=== PATIENT | male | born 1945 | race Caucasian/White ===

== ENCOUNTER 2023-05-10 10:26 | Inpatient (IN) | payer MEDICARE, OTHER, SELFPAY ==
[2023-05-10] VITALS (31 sets, daily range): BP systolic 113–150; BP diastolic 61–78; PULSE 76–91; RESP 16–28; TEMP 36.5–37.2; O2SAT 88–98
--- NOTE | ~2023-05-10 | XR_ITS ---
EXAMINATION: XR chest 1V portable DATE: 05/11/2023 12:32 INDICATION: Hypoxia. Weakness. TECHNIQUE: A single frontal view of the chest was obtained. COMPARISON: Chest single view 05/10/2023, chest CT 05/10/2023 FINDINGS: There are interstitial and airspace opacities in the mid and lower lung zones. No pleural e ffusion or pneumothorax. The heart size is normal. IMPRESSION: 1. Stable airspace and interstitial opacities in the mid and lower lung zones, consistent with mild p ulmonary edema and chronic lung disease without or with superimposed pneumonia. Reviewed, dictated and finalized at location A. T SUPERINTENDENT IMPRESSION: 1. Stable airspace and interstitial opacities in the mid and lower lung zones, consistent with mild pulmonary edema and chronic lung disease without or with s uperimposed pneumonia.
--- NOTE | ~2023-05-10 | CT_ITS ---
EXAMINATION: CTA chest PE abdomen pel DATE: 05/10/2023 12:14 INDICATION: Shortness of breath. TECHNIQUE: Computed tomography angiography (CTA) of the chest was performed with 100 mL Omnipaque-350 intravenous contrast timed to evaluate the pulmonary arteries. Coronal maximum intensity projection 3D-reconstructions were created by the technologist. Computed tomography (CT) of the abdomen and pelv is was performed with intravenous contrast. Automated exposure control and iterative reconstruction t echnique were employed. The dose-length product was 980.01 mGy-cm. COMPARISON: Chest one view 05/10/2023 FINDINGS: CTA chest: There are widespread groundglass opacities in the lungs with septal thickening with a mary pheral predominance with architectural distortion. There are dependent airspace opacities in the lowe r lobes. There is mucous plugging in the lower lobes. There are trace pleural effusions. Cardiomegaly is noted. There are coronary artery calcifications. No pericardial effusion. There is no pulmonary e mbolus. There is mild mediastinal lymphadenopathy, likely reactive. CT abdomen and pelvis: The liver is normal. There is mild splenomegaly. There are old peripheral infa rcts in the spleen with focal volume loss. There are gallstones in the gallbladder, which is normal i n size. The pancreas and adrenal glands are normal. There are stones in right kidney measuring up to 13 mm. There is a delayed and decreased right-sided contrast nephrogram. There is mild right hydronep hrosis and hydroureter. There are 3 mm and 6 mm stones in proximal right ureter. There is a 2.[address] in left kidney. The bladder is distended. There are bilateral hernias containing fat. There is tra ce ascites in the right inguinal hernia. There is diverticulosis of the colon without evidence of div erticulitis. The appendix is not visualized. There are no pathologically enlarged lymph nodes. There is no free intraperitoneal fluid. Intra-abdominal edema is noted. There are changes of umbilical sana ia repair. There is mild lumbar spondylosis. IMPRESSION: 1. Stones in proximal right ureter with mild right hydronephrosis and proximal hydroureter. 2. Diffuse lung disease, likely mild pulmonary edema superimposed on chronic lung disease. Airspace o pacities in the lower lobes be atelectasis or pneumonia. 3. No pulmonary embolus. Reviewed, dictated and finalized at location A. NCE CENTER DISPLAY BUILDER IMPRESSION: 1. Stones in proximal right ureter with mild right hydronephrosis and proximal hydroureter. 2. Diffuse lung disease, likely mild pulmonary edema superimposed on chronic lisa ng disease. Airspace opacities in the lower lobes be atelectasis or pneumonia. 3. No pulmonary embolus.
--- NOTE | ~2023-05-10 | XR_ITS ---
EXAMINATION: XR stent kub - surgery DATE: 05/10/2023 15:48 INDICATION: Right ureteral stones. TECHNIQUE: 2 intraoperative fluoroscopic views of the abdomen and pelvis were obtained. I was not pre sent. Fluoroscopy exposure time was 59 seconds. COMPARISON: CT 05/10/2023 FINDINGS: There is a right internal ureteral stent in expected position. IMPRESSION: 1. Right internal ureteral stent in expected position. Reviewed, dictated and finalized at location A. ST FIREFIGHTER
--- NOTE | ~2023-05-10 | XR_ITS ---
Portable chest x-ray Comparison: None Clinical History: Shortness of breath Findings: There is extensive hazy/groundglass pulmonary disease. No pleural effusion. Cardiomediast inal silhouette is stable. Bones and soft tissues are unremarkable. Impression: Extensive ground glass pulmonary disease. Correlate for mild pulmonary edema versus atypical infectio n. Reviewed, dictated and finalized at [facility]. [place] WATCH SERGEANT Impression: Extensive ground glass pulmonary disease. Correlate for mild pulmonary edema ve rsus atypical infection.
--- NOTE | 2023-05-10 10:54 | ECG_ITS ---
Measurements Intervals [place] Rate: 84 P: 46 GA: 187 QRS: -10 QRSD: 104 T: 8 QT: 376 QTc: 446 Interpretive Statements SINUS RHYTHM EARLY PRECORDIAL R/S TRANSITION CONSIDER INFERIOR INFARCT, AGE INDETERMINATE ABNORMAL ECG NO PREVIOUS ECG AVAILABLE FOR COMPARISON Electronically Signed On 05-10-2023 11:34:04 AIRCRAFT LOADMASTER SUPERINTENDENT by Toni Chamorro D.O.
[2023-05-10] MEDS: ONDANSETRON INJ 4 MG/2 ML VIAL IV PUSH (11:14)
[2023-05-10 11:15] LABS: Alveolar/Arterial O2 Gradient 90.4 mmHg; Fractional Inspired Oxygen 28 %; HCO3 ABG 21.6 mEq/l (22.0-26.0); Methemoglobin ABG 0.4 %THb (0-1.5); Oxygen Content ABG 23.6 %vol (16.0-22.0); Oxygen Saturation ABG 95.4 % (95.0-100.0); Oxyhemoglobin 93.1 % THb (90.0-100.0); PCO2 ABG 31.5 mmHg (35.0-45.0); PO2 ABG 72.1 mmHg (80.0-100.0); PO2 FiO2 Ratio Arterial Blood 2.58 %; Reduced Hemoglobin 5.5 %THb (0-5.0); Total Hemoglobin 18.1 g/dL (12.0-18.0); pH ABG 7.455 (7.350-7.450)
[2023-05-10 11:16] LABS: Device NASAL CANNULA; Modified Allen's Test Pass; Site Drawn RIGHT RADIAL
[2023-05-10 11:32] LABS: INR 1.2; Prothrombin Time 16.2 Seconds (11.1-14.7)
[2023-05-10 11:33] LABS: Lactic Acid Reflex 1.2 mmol/L (0.7-2.0)
[2023-05-10 11:56] LABS: Influenza A QL RT-PCR Negative (Negative); Influenza B QL RT-PCR Negative (Negative); RSV RNA, RT-PCR Negative (Negative); SARS-CoV-2 RNA PCR Negative (Negative)
--- NOTE | 2023-05-10 12:02 | ED.GENADULT ---
HPI - General Adult General Chief complaint: Nausea/Vomiting/Diarrhea Stated complaint: fatigue/sob/nausea Time Seen by Provider: 05/10/23 10:27 Source: patient, EMS, RN notes reviewed and old records reviewed Mode of arrival: EMS Limitations: no limitations History of Present Illness HPI narrative: This is a 78 year old male with history of hypertension and hyperlipidemia who presents for evaluation of shortness of breath, right lower abdominal pain with nausea. He states he was diagnosed with CML 5 months ago and he is following with Dr. Garcia for oncology. He was seen yesterday and he is due to start hydroxyurea but he has not started yet. He states yesterday he developed nausea, dry heaves, right lower abdominal pain and shortness of breath. He reports his pain has been constant. He reports having cough for months. EMS placed patient on 2 L NC. Patient is 88% on room air in ER. He had CT chest, abdomen and pelvis ordered yesterday but he has not had performed yet. Related Data Home Medications Medication Instructions Recorded Confirmed amlodipine 10 mg tablet 10 mg PO DAILY 05/10/23 05/10/23 atorvastatin 10 mg tablet 10 mg PO DAILY 05/10/23 05/10/23 hydroxyurea 500 mg capsule 500 mg PO DAILY 05/10/23 05/10/23 levothyroxine 112 mcg tablet 112 mcg PO DAILY 05/10/23 05/10/23 Allergies Allergy/AdvReac Type Severity Reaction Status Date / Time shellfish derived Allergy Unknown Nausea and Verified 05/10/23 14:18 Vomiting Review of Systems Constitutional: Constitutional: Reports weakness Cardiovascular: Cardiovascular: Denies syncope, Denies rapid heart rate, Denies irregular heart rhythm, Denies leg edema and Denies dyspnea Respiratory: Respiratory: Denies chest congestion, Reports cough, Denies hemoptysis, Denies excessive phlegm production and Reports dyspnea Gastrointestinal: Gastrointestinal: Reports abdominal pain, Denies hematochezia, Denies diarrhea, Reports nausea and Reports vomiting Genitourinary: Genitourinary: Denies hematuria, Denies dysuria, Denies penile discharge and Denies testicular pain Musculoskeletal: Musculoskeletal: Denies joint swelling, Denies loss of height and Denies muscle weakness Neurologic: Denies syncope, Denies focal weakness and Denies weakness PMFSH Past Medical History Medical History CML (chronic myelocytic leukemia) Essential hypertension Hyperlipidemia Hypothyroid Surgical History Surgical History H/O umbilical hernia repair Family History Family History (Updated 05/10/23 @ 17:32 by Juli Martines RN) Father Hiatal hernia Grandparent Malignant neoplasm of prostate Social History Social History Social History: Lives at home alone. He has 1 child a daughter, Helen Montesinos. He list his daughter Madeline and Skye Evans as his emergency contact. He also states that he has a living will. 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 Gender identity (if verbalized by the patient): Male Spiritual care concerns: No Exam Const: General: no acute distress, alert and ill appearing Orientation/consciousness: patient oriented x3 HENMT: Head: normal to inspection Eyes: EOM: EOMs int
[2023-05-10 12:03] LABS: Hematocrit 56.7 % (42.0-52.0); Hemoglobin 17.7 g/dL (14.0-18.0); Immature Platelet Fraction Pct 24.4 % (0.9-11.2); Mean Corpuscular HGB Conc 31.2 g/dl (32-36); Mean Corpuscular Hemoglobin 27.7 pg (26-34); Mean Corpuscular Volume 88.7 fl (80-100); Mean Platelet Volume 13.7 fl (7.4-10.4); Platelet Count Result 150 k/mm3 (150-375); Red Blood Count 6.39 M/mm3 (4.6-6.20); Red Cell Distribution Width 17.9 % (11.5-14.5); White Blood Count 36.8 K/mm3 (4.5-10.0)
[2023-05-10 12:06] LABS: Estimated CRCL calculation 31 ml/min; Estimated Glomerular Filt Rate 39
[2023-05-10 12:15] LABS: Alanine Aminotransferase 26 U/L (6-50); Albumin Level 4.1 g/dL (3.5-5.1); Alkaline Phosphatase 307 U/L (38-126); Anion Gap 13 mmol/L (8-16); Aspartate Amino Transferase 40 U/L (17-59); Bilirubin,Total 1.7 mg/dL (0.2-1.3); Blood Urea Nitrogen 24 mg/dL (9-20); Calcium 9.2 mg/dL (8.4-10.2); Carbon Dioxide 22 mmol/L (22-30); Chloride 100 mmol/L (98-107); Estimated CRCL calculation 30 ml/min; Estimated Glomerular Filt Rate 37; Glucose 130 mg/dL (65-110); Lipase 23 U/L (23-300); Potassium 4.3 mmol/L (3.4-5.0); Sodium 135 mmol/L (137-145)
[2023-05-10 12:35] LABS: Band Neutrophils Percent 14 % (0-6); Eosinophils Absolute Manual 0.36 K/mm3 (0.02-0.5); Eosinophils Percent Manual 1 % (0-4); Lymphocytes Percent Manual 3 % (18-44); Monocytes Absolute Manual 8.09 K/mm3 (0.1-0.90); Monocytes Percent Manual 22 % (3-9); Neutrophils Absolute Manual 27.23 K/mm3 (1.3-6.7); Neutrophils Percent Manual 60 % (46-73); Platelet Estimate Adequate (Adequate); Total Cells Counted 100
[2023-05-10 12:36] LABS: Poikilocytosis 1+ (NORMAL); Schistocytes None Seen (NORMAL)
[2023-05-10 12:42] LABS: NT Pro B Type Natriuretic Pept 1350 pg/mL (19.9-100); Troponin I < 0.012 ng/mL (0.000-0.034)
[2023-05-10 13:12] LABS: Appearance Urine Clear (Clear); Bacteria Urine None Seen /hpf; Bilirubin Urine Negative (Negative); Blood Urine 2+ (Negative); Color Urine Yellow (Yellow); Glucose Urine UA Negative (Negative); Ketones Urine Negative (Negative); Leukocyte Esterase Ur Negative LEU/UL (Negative); Nitrate Urine Negative (Negative); Non Pathogenic Casts 0-2; Protein Urine 2+ mg/dL (Negative); RBC Urine 21-50 /hpf (0-2); Specific Grav Ur 1.016 (1.001-1.035); Squamous Epithelial Cell Urine None seen /hpf (Few); WBC Urine 0-5 /hpf
[2023-05-10 13:22] LABS: Add Urine Microscopic? YES
[2023-05-10] MEDS: FUROSEMIDE INJ 40 MG/4 ML VIAL IV PUSH ×2 (13:24→18:01)
--- NOTE | 2023-05-10 13:40 | WPDURCON ---
Assessment and Plan Assessment and plan (1) Right ureteral stone: Code(s): N20.1 - Calculus of ureter Status: Acute (2) Right renal stone: Code(s): N20.0 - Calculus of kidney Status: Acute Assessment and Plan: Obstructing right proximal ureteral stone with intractable nausea vomiting possible UTI Plan cysto with right stent placement today. Definitive stone management with ESWL [id number]. Urology Consult Note HPI Date Seen: 05/10/23 Primary Care Provider: GABBY HUERTAS, NETWORKING ENGINEER Consult Narrative Narrative: Oscar Vila is a 78 year old male without prior significant urological history without history of urolithiasis. He presents the emergency department with intractable nausea and vomiting. Imaging demonstrates an obstructing right proximal denies a history urolithiasis in the past. He denies fevers chills or gross hematuria. He does have a history of CML explains, in part, his leukocytosis. Review of Systems Cardiovascular: Cardiovascular: Denies chest pain, Denies lightheadedness, Denies palpitations and Denies dyspnea Respiratory: Respiratory: Denies dyspnea Gastrointestinal: Gastrointestinal: Denies diarrhea, Denies nausea and Denies vomiting Genitourinary: Genitourinary: Denies hematuria and Denies dysuria Endocrine: Endocrine: Denies palpitations PMFSH Past Medical History Medical History (Updated 05/10/23 @ 13:42 by Morris Diggs MD) CML (chronic myelocytic leukemia) Essential hypertension Hyperlipidemia Family History Family History (Updated 03/29/17 @ 15:34 by DOCTOR UNKNOWN) Other Malignant neoplasm of prostate Social History Social History Smoking status: Never smoker Alcohol intake: current Meds Home Medications and Allergies Allergies Allergy/AdvReac Type Severity Reaction Status Date / Time shellfish derived Allergy Unknown Nausea and Verified 05/10/23 11:09 Vomiting Vital Signs Vital Signs - 24 hr 05/10/23 10:26 05/10/23 11:16 05/10/23 11:19 Temperature 97.7 F Pulse Rate 84 Respiratory Rate 17 Blood Pressure 139/75 Pulse Oximetry 94 88 L 92 Oxygen Delivery Nasal Cannula Room Air Nasal Cannula Oxygen Flow Rate 2 2 05/10/23 10:33 05/10/23 10:45 05/10/23 11:00 Temperature Pulse Rate 86 87 86 Respiratory Rate 17 23 H 23 H Blood Pressure Pulse Oximetry 95 91 91 Oxygen Delivery Oxygen Flow Rate 05/10/23 11:01 05/10/23 11:15 05/10/23 11:31 Temperature Pulse Rate 84 86 84 Respiratory Rate 28 H 25 H 26 H Blood Pressure 130/69 Pulse Oximetry 93 89 L 93 Oxygen Delivery Oxygen Flow Rate 05/10/23 11:45 05/10/23 12:19 05/10/23 12:20 Temperature Pulse Rate 85 90 91 Respiratory Rate 25 H 23 H 24 H Blood Pressure 150/78 H Pulse Oximetry 94 95 Oxygen Delivery Oxygen Flow Rate 05/10/23 12:30 05/10/23 12:31 05/10/23 12:32 Temperature Pulse Rate 86 88 90 Respiratory Rate 26 H 24 H 27 H Blood Pressure 145/76 H Pulse Oximetry 92 93 92 Oxygen Delivery Oxygen Flow Rate 05/10/23 12:47 05/10/23 13:03 Temperature Pulse Rate 86 84 Respiratory Rate 23 H 20 Blood Pressure 132/66 Pulse Oximetry 92 96 Oxygen Delivery Oxygen Flow Rate Exam Const: General: no acute distress Resp: Effort & Inspection: normal respiratory effort GI: Inspection: non-distended GI Palp: No abdominal tenderness and No Guarding due to palpation present (GI) Auscultation: normal bowel sounds Results Labs 05/10/23 11:49 05/10/23 12:04 Labs: Short CBC 05/10/23 Range/Units 11:49 WBC 36.8 H (4.5-10.0) K/mm3 Hgb 17.7 (14.0-18.0) g/dL Hct 56.7 H (42.0-52.0) % Plt Count 150 (150-375) k/mm3 BMP 05/10/23 05/10/23 11:49 12:04 Sodium 135 L Potassium 4.3 Chloride 100 Carbon Dioxide 22 BUN 24 H Creatinine 1.80 H 1.70 H Glucose 130 H Calcium 9.2 Cardiac Enzymes 05/10
--- NOTE | 2023-05-10 13:44 | WPDHPUPDATE1 ---
History and Physical Update Update Date/Time: 05/10/23 13:44 History and Physical has been reviewed, including an updated exam of the patient. There are NO changes in the patient's condition. Risks, benefits, and alternatives have been discussed and questions answered. Patient agrees to proceed with procedure.
--- NOTE | 2023-05-10 14:11 | PM.IMHP ---
H&P: HPI History of Present Illness Date/Time: 05/10/23 14:11 Chief Complaint: Right-sided abdominal pain, shortness a breath Narrative: This is a 78-year-old male with a past medical history of hypothyroidism, high cholesterol, hypertension, and recent diagnosis of CML status post bone marrow biopsy. He presented to the ER today with symptoms of right-sided abdominal/flank pain, nausea, and shortness of breath. He says that he has been having shortness of breath off and on for the last couple of weeks. He has a productive cough with white sputum. He denies fever or chills, sore throat, runny nose or recent sick contact. Last night he developed right-sided flank and abdominal pain associated with dry heaving. The pain is ultimately what brought him to the hospital. On arrival to the ER he was sating 88% on air. He was placed on 2 L and his oxygen improved to greater than 92%. Respirations in the 20s, heart rate in the 80s and he is afebrile. Blood pressures have been stable 130s to 140s over 70s. Patient states he follows with his primary care provider Felicitas Jackson NP and follows with an oncologist at [facility] for his leukemia. He was start taking hydroxyurea for his CML. The prescription was filled yesterday but he has yet to take his 1st dose. In the ED labs are significant for a white count of 36.8, hematocrit 56.7, PT 16.2, APTT 50, sodium 135, creatinine 1.80, BUN 24, and BNP of 1350. CTA chest abdomen and pelvis shows no PE, diffuse lung disease with mild pulmonary edema and airspace opacities in lower lobes thought to be atelectasis versus pneumonia. He also had 3 mm and 6 mm stones in the proximal right ureter with mild right hydronephrosis and proximal hydroureter. UA has presence of protein, blood but no signs of infection. He is being admitted under observation for further workup of new oxygen requirement and urology consult for immune stent placement and possible stone extraction. He is going to the OR this afternoon with Dr. Diggs. Review of Systems Review of Systems: All systems reviewed & are unremarkable except as noted in HPI and below PMFSH Past Medical History Medical History CML (chronic myelocytic leukemia) Essential hypertension Hyperlipidemia Hypothyroid Surgical History Surgical History H/O umbilical hernia repair Family History Family History Other Malignant neoplasm of prostate Social History Social History (Updated 05/10/23 @ 14:24 by Aleida Engel APRN) Social History: Lives at home alone. He has 1 child a daughter, Helen Montesinos. He list his daughter Madeline and Skye Evans as his emergency contact. He also states that he has a living will. Smoking status: Never smoker Alcohol intake: current Alcohol use details: States he drinks a few beers a day Substance use: never Lack of Transportation: No Lack of Food: Never True Current Housing: I Have Housing Concerned About Future Housing: No Difficulty Paying Gas/Electric Bills: No Difficulty Paying for Meds: No Currently Unemployed: No Difficulty w/ Childcare or Family Care: No Living arrangements: alone Occupation/Education: retired Additional occupation/education comments: He is retired from the [employer] and works part-time with [employer]. Gender identity (if verbalized by the patient): Male Meds Home Medications and Allergies Home Medications Medication Instructions Recorded Confirmed Type amlodipine 10 mg tablet 10 mg PO DAILY 05/10/23 05/10/23 History atorvastatin 10 mg tablet 10 mg PO DAILY 05/10/23 05/10/23 History hydroxyurea 500 mg capsule 500 mg PO DAILY 05/10/23 05/10/23 History levothyroxine 112 mcg tablet 112 mcg PO DAILY 05/10/23 05/10/23 History Allergies Allergy/AdvReac Type Evie
--- NOTE | 2023-05-10 14:43 | WPDANESEPPF ---
Anes - Initial Pre Proc Eval Procedure: Operation Date: 05/10/23 16:30 Proposed Procedures p Cystoscopy, Right Stent Placement - Morris Diggs MD Date/Time: 05/10/23 14:43 Surgeon: Morris Diggs MD Pre Op Diagnosis: fatigue/sob/nausea Patient Data Age: 78 Gender: M Height: 1.7 m Weight: 78.6 kg Last Vital Signs Temp 36.5 C 05/10/23 14:11 Pulse 85 05/10/23 14:11 Resp 18 05/10/23 14:11 BP 142/68 H 05/10/23 14:11 Pulse Ox 97 05/10/23 14:11 O2 Del Method Room Air 05/10/23 14:11 O2 Flow Rate 2 05/10/23 11:19 Allergies Allergy/AdvReac Type Severity Reaction Status Date / Time shellfish derived Allergy Unknown Nausea and Verified 05/10/23 14:18 Vomiting Home Medications Medication Instructions Recorded Confirmed Type amlodipine 10 mg tablet 10 mg PO DAILY 05/10/23 05/10/23 History atorvastatin 10 mg tablet 10 mg PO DAILY 05/10/23 05/10/23 History hydroxyurea 500 mg capsule 500 mg PO DAILY 05/10/23 05/10/23 History levothyroxine 112 mcg tablet 112 mcg PO DAILY 05/10/23 05/10/23 History Laboratory Tests 05/10/23 05/10/23 05/10/23 11:03 11:04 11:06 WBC RBC Hgb Hct MCV MCH MCHC RDW Plt Count MPV Immature Gran % (Auto) Neut % (Auto) Lymph % (Auto) [place] % (Auto) Eos % (Auto) Baso % (Auto) Lymph # (Auto) [place] # (Auto) Eos # (Auto) Baso # (Auto) Abs Immat Gran (auto) Absolute Neuts (auto) Absolute Nucleated RBC Total Counted Neutrophils % (Manual) Band Neutrophils % Lymphocytes % (Manual) Monocytes % (Manual) Eosinophils % (Manual) Nucleated RBC % Abs Neuts (Manual) Abs Lymphs (Manual) Abs Monocytes (Manual) Absolute Eos (Manual) Platelet Estimate % Immature Plt Fraction Poikilocytosis Schistocytes PT 16.2 H Seconds (11.1-14.7) INR 1.2 APTT 50.0 H SECONDS (22.3-36.8) Puncture Site Right radial ABG pH 7.455 H (7.350-7.450) ABG pCO2 31.5 L mmHg (35.0-45.0) ABG pO2 72.1 L mmHg (80.0-100.0) ABG PO2/FiO2 Ratio 2.58 % ABG HCO3 21.6 L mEq/l (22.0-26.0) ABG O2 Saturation 95.4 % (95.0-100.0) ABG O2 Content 23.6 H %vol (16.0-22.0) ABG Base Excess -1.0 mEq/l (+/-2.0) A-a Gradient 90.4 mmHg Oxyhemoglobin 93.1 % THb (90.0-100.0) Carboxyhemoglobin 1.0 % THb (0-2.0) Methemoglobin 0.4 %THb (0-1.5) Reduced Hemoglobin 5.5 H %THb (0-5.0) Total Hemoglobin 18.1 H g/dL (12.0-18.0) O2 Delivery Device Nasal cannula O2 Liters/Min 2.0 LPM FiO2 28 % Sodium Potassium Chloride Carbon Dioxide Anion Gap BUN Creatinine Estim Creat Clear Calc Estimated GFR Glucose Lactic Acid 1.2 mmol/L (0.7-2.0) Calcium Total Bilirubin AST ALT Alkaline Phosphatase Troponin I NT-Pro-B Natriuret Pep Total Protein Albumin Lipase Urine Color Urine Appearance Urine pH Ur Specific [place] Urine Protein Urine Glucose (UA) Urine Ketones Ur Blood (Man) Urine Nitrate Urine Bilirubin Urine Urobilinogen Leukocyte Esterase Rfl
[2023-05-10] MEDS: ceFAZolin 2 GM/D5W 50 ML 2 GM/50 ML BAG IVPB (15:33)
[2023-05-10] MEDS: LIDOCAINE HCL 2% GEL UROJET 10 ML PKG MUCOUS MEM (15:36)
--- NOTE | 2023-05-10 15:52 | W.PM.PROC2 ---
Procedure Note - Detailed Date of Procedure 05/10/23 Pre-op Diagnosis Right ureteral stone Post-op Diagnosis Same Procedure Performed Cystoscopy, right retrograde pyelography and right ureteral stent placement Surgeon Morris Diggs MD Anesthesia MAC Description of Procedure Patient is brought to the operative suite where he was prepped and draped in routine sterile fashion while in dorsal lithotomy position after the uneventful induction of a general LMA anesthetic. Cystoscopy was undertaken with a 19 F rigid cystoscope. There was no urethral strictures. He had moderate lateral lobe hyperplasia without significant median lobe enlargement. Prostatic urethra measures 2 cm. The bladder is slightly trabeculated but no cellule or diverticular formation. Bladder mucosa is normal without hyperemia. There was no intravesical foreign body or neoplasm. He has a single orthotopic ureteral orifice bilaterally. 0.035 in glidewire was advanced to the stone. I could not advance beyond the stone without 1st placing a ureteral catheter over the guidewire. I then was able to manipulate the wire into the renal pelvis. Retrograde pyelography outlines the collecting system to ensure proper placement of 4.8 F variable length stent with proximal coil in the renal pelvis and distal coil in bladder. Scopes and wires removed the was taken recovery room good condition. Packing No Pathology None sent Complications No immediate complications Condition Stable Disposition PACU
[2023-05-10] MEDS: LACTATED RINGERS 1,000 ML 30 ML IV CONT ×2 (15:54→16:06)
--- NOTE | 2023-05-10 17:22 | ADMGEN ---
This patient, Oscar Vila, was admitted to -. Patient/family oriented to hospital policies and general routines including ID bracelet, bed and alarms, visiting hours, pain management, procedures, bathroom and other care routines, personal items, smoking policy, room service/diet, and visiting hours. Information on how to activate the Rapid Response Team has been discussed. Patient/Family are encouraged to report perceived risks to care and to ask questions if they do not understand what they are told or what they should do.
[2023-05-10] MEDS: amLODIPine BESYLATE 5 MG TABLET 10 MG PO (18:01)
[2023-05-10 20:09] LABS: Procalcitonin 0.6 ng/mL
[2023-05-10 20:51] LABS: Cholesterol 78 mg/dL (0-200); HDL Direct 25 mg/dL; Triglycerides 137 mg/dL (<150); Uric Acid 10.6 mg/dL (3.5-8.5)
[2023-05-10 20:57] LABS: LDL Cholesterol Direct 33 mg/dL
[2023-05-11] VITALS (10 sets, daily range): BP systolic 104–120; BP diastolic 61–64; PULSE 74–90; RESP 16–18; TEMP 36.3–37; O2SAT 92–98
--- NOTE | 2023-05-11 | ECHO_ITS ---
Patient Info Name: Oscar Vila Age: 78 years : 1945 Gender: Male Ht: 67 in Wt: 173 lbs BSA: 1.94 m2 HR: 78 bpm BP: 117 / 64 mmHg Heart Rhythm: Sinus Rhythm Technical Quality: Fair Exam Date: 05/11/2023 7:21 AM Exam Location: Echo Lab Exam Room: 341 Patient Status: Inpatient Admit Date: 05/10/2023 Staff Ordering Physician: lAeida Engel APRN Senior Applications Engineer: Joy Steiner RDCS Attending Provider: Morris Diggs MD Referring Physician: Toro PADILLA; Exam Type: CA echo doppler color flow Study Info Indications - s/p op elevated bnp pulm edema Complete two-dimensional, color flow and Doppler transthoracic echocardiogram is performed. Summary 1. Complete two-dimensional, color flow and Doppler transthoracic echocardiogram is performed. 2. Normal left ventricular size with mild concentric hypertrophy. Overall good systolic function with ejection fraction 60-65%. The inferior apical segment was hypokinetic, but seen only on one view. Grade 2 diastolic dysfunction is present. 3. Global longitudinal strain is abnormal at -15%. 4. Left atrial chamber dimension is moderately enlarged. 5. There is mild mitral valve regurgitation. 6. Mild pulmonary hypertension, estimated pulmonary arterial systolic pressure is 46 mmHg. 7. Normal sinus rhythm. 8. Somewhat technically difficult study; endocardium was not well seen in all views. Left Ventricle Left ventricular chamber dimension is normal. Left ventricular systolic function is normal, estimated at 60-65%. There is mildly increased left ventricular wall thickness. Left ventricular septal wall motion is normal. The left ventricular diastolic function is grade II diastolic dysfunction. Global longitudinal strain is abnormal at -15 %. Right Ventricle Right ventricular chamber dimension is normal. Right ventricular systolic function is normal. Left Atria Left atrial chamber dimension is moderately enlarged. Right Atria Right atrial chamber dimension is normal. Aortic Valve The aortic valve is trileaflet. There is moderate aortic valve sclerosis. There is no aortic valve stenosis. There is no aortic valve regurgitation. Pulmonic Valve The pulmonic valve is normal. There is no pulmonic valve stenosis. There is trace pulmonic regurgitation. Mitral Valve The mitral valve has thickened leaflets. There is no mitral valve stenosis. There is mild mitral valve regurgitation. Tricuspid Valve The tricuspid valve leaflets are normal. There is no significant tricuspid valve stenosis. There is trace tricuspid valve regurgitation. Mild pulmonary hypertension, estimated pulmonary arterial systolic pressure is 46 mmHg. Pericardium/Pleural The pericardium appears normal. There is no pericardial effusion. Inferior Vena Cava Normal inferior vena cava with >50% collapse upon inspiration consistent with Empty right atrial pressure, 10 mmHg. Aorta The aortic root size at the sinus of Valsalva is normal. The prox ascending aorta size is normal. Left Ventricular Outflow Tract Name Value Normal LVOT 2D LVOT Diameter 2.0 cm LVOT Doppler LVOT Peak Gradient 6 mmHg LVOT Mean Gradient 4 mmHg
[2023-05-11] MEDS: LEVOTHYROXINE SODIUM 112 MCG TABLET PO (06:13)
[2023-05-11 06:21] LABS: Hematocrit 53.4 % (42.0-52.0); Immature Platelet Fraction Pct 22.8 % (0.9-11.2); Mean Corpuscular HGB Conc 31.8 g/dl (32-36); Mean Corpuscular Volume 87.8 fl (80-100); Mean Platelet Volume 12.8 fl (7.4-10.4); Platelet Count Result 170 k/mm3 (150-375); Red Blood Count 6.08 M/mm3 (4.6-6.20); Red Cell Distribution Width 17.6 % (11.5-14.5); White Blood Count 35.6 K/mm3 (4.5-10.0)
[2023-05-11 06:36] LABS: Alanine Aminotransferase 20 U/L (6-50); Albumin Level 3.8 g/dL (3.5-5.1); Alkaline Phosphatase 286 U/L (38-126); Anion Gap 13 mmol/L (8-16); Aspartate Amino Transferase 37 U/L (17-59); Bilirubin,Total 1.6 mg/dL (0.2-1.3); Blood Urea Nitrogen 26 mg/dL (9-20); Calcium 8.8 mg/dL (8.4-10.2); Carbon Dioxide 23 mmol/L (22-30); Chloride 99 mmol/L (98-107); Estimated CRCL calculation 28 ml/min; Estimated Glomerular Filt Rate 35; Glucose 97 mg/dL (65-110); Potassium 4.1 mmol/L (3.4-5.0); Sodium 135 mmol/L (137-145)
[2023-05-11 06:42] LABS: NT Pro B Type Natriuretic Pept 2460 pg/mL (19.9-100)
--- NOTE | 2023-05-11 08:11 | PM.IMPN ---
Progress Note: A&P Assessment and Plan (1) Acute hypoxic respiratory failure: Code(s): J96.01 - Acute respiratory failure with hypoxia Status: Acute Assessment and Plan: SOB on presentation and saturating 88% on room air. Reports intermittent SOB for the last 2-3 weeks. 2 L NC oxygen to maintain saturation > 92% BNP 1350 in the ED. He received 1 dose of IV Lasix 40 mg. Still with crackles to BLL. Will re-dose with lasix tonight at 1700 after procedure. SOB with exertion. Denies dyspnea at rest. Afebrile, no fever, chills. WBC is elevated however he has CML. ECHO ordered Summary ? 1. Complete two-dimensional, color flow and Doppler transthoracic echocardiogram is performed. ? 2. Normal left ventricular size with mild concentric hypertrophy.? Overall good systolic function with ejection fraction 60-65%.? The inferior apical segment was hypokinetic, but seen only on one view.? Grade 2 diastolic dysfunction is present. ? 3. Global longitudinal strain is abnormal at -15%. ? 4. Left atrial chamber dimension is moderately enlarged. ? 5. There is mild mitral valve regurgitation. ? 6. Mild pulmonary hypertension, estimated pulmonary arterial systolic pressure is 46 mmHg. ? 7. Normal sinus rhythm. ? 8. Somewhat technically difficult study; endocardium was not well seen in all views. Will order procal to help decide is this needs bacterial coverage IS 05/11: Pro robert was 0.6, WBC 35.6. He remains afebrile. BNP increased to 2460 from 1350. Adventitious lung sounds still present. (2) Right ureteral stone: Code(s): N20.1 - Calculus of ureter Status: Acute Assessment and Plan: 6 mm and 3 mm right ureteral and renal stones urology is taking him for cysto this afternoon morphine prn for pain zofran for nausea Cr elevated at 1.7-1.8. Unknown baseline. Holding off on IVF at this time given pulmonary edema and SOB. Expect to see Cr decrease after cysto. Trend BMP 05/11: Uric acid elevated 10.6. Will start on renally dosed allopurinol. S/P cystoscopy with Dr Diggs and is voiding appropriately. (3) 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ieved remission Status: Acute Assessment and Plan: Recently diagnosed and follows with oncologist at [facility] in [place] Dx with bone marrow biopsy. Was an incidental finding on labs WBC 36.8 today Just filled his prescription of hydroxyurea yesterday but had not yet started it due to feeling poorly (4) Hyperlipidemia: Code(s): E78.5 - Hyperlipidemia, unspecified Status: Acute Assessment and Plan: On atorvastatin daily. Stable. Continue home medication lipid panel ordered 05/11: Lipid panel reviewed. Continue with statin. (5) Essential hypertension: Code(s): I10 - Essential (primary) hypertension Status: Acute Assessment and Plan: Stable. Takes amlodipine daily blood pressures reviewed 05/10. Can restart home med 05/11: Blood pressures reviewed. (6) Hypothyroid: Code(s): E03.9 - Hypothyroidism, unspecified Status: Acute Assessment and Plan: Stable. On levothyroxine. TSH ordered 05/11: TSH elevated. Add-on T4 and Free T3. Plan Feeding:regular diet Analgesia:Morphine Thromboembolic prophylaxis: scd Ulcer prophylaxis: na Glycemic control: na Bowel regimen: na Lines: PIV Antibiotics: cefazolin for cysto Disposition: home Subjective Date/time seen: 05/11/23 08:11 Interval history: This is a 78-year-old male with a past medical history of hypothyroidism, high cholesterol, hypertension, and recent diagnosis of CML status post bone marrow biopsy.? He presented to the ER today with symptoms of right-sided abdominal/flank pain, nausea, and shortness of breath.? He says that he has been having shortness of breath off and on for the last couple of weeks.? He has a productive
[2023-05-11] MEDS: amLODIPine BESYLATE 5 MG TABLET 10 MG PO (08:24)
[2023-05-11] MEDS: ATORVASTATIN 10 MG TABLET PO (08:24)
[2023-05-11 09:08] LABS: Band Neutrophils Percent 30 % (0-6); Lymphocytes Absolute Manual 1.42 K/mm3 (1.1-4.5); Metamyelocytes Percent 1 %; Monocytes Absolute Manual 7.47 K/mm3 (0.1-0.90); Monocytes Percent Manual 21 % (3-9); Neutrophils Absolute Manual 25.98 K/mm3 (1.3-6.7); Neutrophils Percent Manual 43 % (46-73); Platelet Estimate Adequate (Adequate); Schistocytes None Seen (NORMAL); Total Cells Counted 100
[2023-05-11 09:09] LABS: Smudge Cells PRESENT
[2023-05-11 09:10] LABS: Large Platelets Present
[2023-05-11] MEDS: allopurinoL 100 MG TABLET PO (12:50)
[2023-05-11] MEDS: FUROSEMIDE INJ 40 MG/4 ML VIAL IV PUSH (18:06)
[2023-05-11] MEDS: AZITHROMYCIN 500 MG/NS 250 ML 500 MG/250 ML BAG 250 MG IVPB (18:59)
[2023-05-11] MEDS: ACETAMINOPHEN 325 MG TABLET 650 MG PO (20:26)
[2023-05-11 21:55] LABS: T4 Thyroxine 7.31 ug/dL (5.53-11.0)
[2023-05-12] VITALS: PULSE 80
[2023-05-12 04:00] VITALS: PULSE 75
[2023-05-12 06:00] VITALS: BP 119/62; PULSE 80; RESP 16; TEMP 36.6; O2SAT 93
[2023-05-12] MEDS: LEVOTHYROXINE SODIUM 112 MCG TABLET PO (06:23)
[2023-05-12 08:00] VITALS: PULSE 77; O2SAT 93
[2023-05-12] MEDS: ATORVASTATIN 10 MG TABLET PO (08:05)
[2023-05-12] MEDS: allopurinoL 100 MG TABLET PO (08:05)
[2023-05-12] MEDS: amLODIPine BESYLATE 5 MG TABLET 10 MG PO (08:05)
[2023-05-12 09:37] LABS: Alanine Aminotransferase 19 U/L (6-50); Albumin Level 3.8 g/dL (3.5-5.1); Alkaline Phosphatase 314 U/L (38-126); Anion Gap 10 mmol/L (8-16); Aspartate Amino Transferase 43 U/L (17-59); Bilirubin,Total 1.7 mg/dL (0.2-1.3); Blood Urea Nitrogen 29 mg/dL (9-20); Carbon Dioxide 25 mmol/L (22-30); Chloride 100 mmol/L (98-107); Estimated CRCL calculation 31 ml/min; Estimated Glomerular Filt Rate 39; Glucose 109 mg/dL (65-110); Magnesium 2.1 mg/dL (1.6-2.3); Potassium 3.9 mmol/L (3.4-5.0); Sodium 135 mmol/L (137-145)
[2023-05-12 09:42] LABS: Hematocrit 54.4 % (42.0-52.0); Hemoglobin 17.1 g/dL (14.0-18.0); Immature Platelet Fraction Pct 23.9 % (0.9-11.2); Mean Corpuscular HGB Conc 31.4 g/dl (32-36); Mean Corpuscular Hemoglobin 27.8 pg (26-34); Mean Corpuscular Volume 88.5 fl (80-100); Platelet Count Result 162 k/mm3 (150-375); Red Blood Count 6.15 M/mm3 (4.6-6.20); Red Cell Distribution Width 17.8 % (11.5-14.5); White Blood Count 42.8 K/mm3 (4.5-10.0)
[2023-05-12 09:46] LABS: NT Pro B Type Natriuretic Pept 1600 pg/mL (19.9-100)
--- NOTE | 2023-05-12 10:14 | WPDANESPN ---
Anes - Prog Note Post-Op Date/Time: 05/12/23 10:14 Cardiovascular status: normal Respiratory status: normal Airway patency: baseline Mental status: baseline Post-Op hydration status: normal Vital Signs: Last Vital Signs Temp 97.9 F 05/12/23 06:00 Pulse 77 05/12/23 08:00 Resp 16 05/12/23 06:00 BP 119/62 05/12/23 06:00 Pulse Ox 93 05/12/23 08:00 O2 Del Method Room Air 05/12/23 08:00 O2 Flow Rate 1 05/11/23 08:00 Pain Score (VAS): 0 I/O: Intake & Output 05/11/23 05/12/23 05/12/23 23:59 07:59 15:59 Intake Total 1540 600 Output Total 550 800 Balance 990 -200 Laboratory Tests 05/12/23 09:20 05/11/23 05/12/23 06:09 09:20 WBC Pending RBC Pending Hgb Pending Hct Pending MCV Pending MCH Pending MCHC Pending RDW Pending Plt Count Pending MPV Pending Immature Gran % (Auto) Pending Neut % (Auto) Pending Lymph % (Auto) Pending Cottle % (Auto) Pending Eos % (Auto) Pending Baso % (Auto) Pending Lymph # (Auto) Pending Cottle # (Auto) Pending Eos # (Auto) Pending Baso # (Auto) Pending Abs Immat Gran (auto) Pending Absolute Neuts (auto) Pending Absolute Nucleated RBC Pending Nucleated RBC % Pending Sodium 135 L Potassium 3.9 Chloride 100 Carbon Dioxide 25 Anion Gap 10 BUN 29 H Creatinine 1.70 H Estim Creat Clear Calc 31 Estimated GFR 39 L Glucose 109 Calcium 9.0 Magnesium 2.1 Total Bilirubin 1.7 H AST 43 ALT 19 Alkaline Phosphatase 314 H NT-Pro-B Natriuret Pep 1600 H Total Protein 8.0 Albumin 3.8 Procalcitonin Pending Thyroxine (T4) 7.31 Post-procedural complaints: none Patient Feedback: Patient satisfied with anesthetic care.
[2023-05-12 10:23] LABS: Procalcitonin 0.7 ng/mL
[2023-05-12 11:41] LABS: Atypical Lymphocytes Present; Band Neutrophils Percent 13 % (0-6); Lymphocytes Absolute Manual 2.14 K/mm3 (1.1-4.5); Monocytes Absolute Manual 7.27 K/mm3 (0.1-0.90); Monocytes Percent Manual 17 % (3-9); Neutrophils Absolute Manual 33.38 K/mm3 (1.3-6.7); Neutrophils Percent Manual 65 % (46-73); Total Cells Counted 100
[2023-05-12 11:42] LABS: Giant Platelets Present; Platelet Estimate Adequate (Adequate); Schistocytes None Seen (NORMAL)
[2023-05-12 12:00] VITALS: PULSE 84
[2023-05-12 14:00] VITALS: BP 114/59; PULSE 85; RESP 16; TEMP 36.6; O2SAT 90
--- NOTE | 2023-05-12 14:50 | PM.DS ---
DS: Admitting Diagnosis Discharge Date 05/12 Admitting Diagnosis Right flank pain, nausea, SOB DS: Discharge Diagnosis Discharge Diagnosis (1) Acute hypoxic respiratory failure: Code(s): J96.01 - Acute respiratory failure with hypoxia Status: Acute Assessment and Plan: SOB on presentation and saturating 88% on room air. Reports intermittent SOB for the last 2-3 weeks. 2 L NC oxygen to maintain saturation > 92% BNP 1350 in the ED. He received 1 dose of IV Lasix 40 mg. Still with crackles to BLL. Will re-dose with lasix tonight at 1700 after procedure. SOB with exertion. Denies dyspnea at rest. Afebrile, no fever, chills. WBC is elevated however he has CML. ECHO ordered Summary ? 1. Complete two-dimensional, color flow and Doppler transthoracic echocardiogram is performed. ? 2. Normal left ventricular size with mild concentric hypertrophy.? Overall good systolic function with ejection fraction 60-65%.? The inferior apical segment was hypokinetic, but seen only on one view.? Grade 2 diastolic dysfunction is present. ? 3. Global longitudinal strain is abnormal at -15%. ? 4. Left atrial chamber dimension is moderately enlarged. ? 5. There is mild mitral valve regurgitation. ? 6. Mild pulmonary hypertension, estimated pulmonary arterial systolic pressure is 46 mmHg. ? 7. Normal sinus rhythm. ? 8. Somewhat technically difficult study; endocardium was not well seen in all views. Will order procal to help decide is this needs bacterial coverage IS 05/11: Pro robert was 0.6, WBC 35.6. He remains afebrile. BNP increased to 2460 from 1350. Adventitious lung sounds still present. (2) Right ureteral stone: Code(s): N20.1 - Calculus of ureter Status: Acute Assessment and Plan: 6 mm and 3 mm right ureteral and renal stones urology is taking him for cysto this afternoon morphine prn for pain zofran for nausea Cr elevated at 1.7-1.8. Unknown baseline. Holding off on IVF at this time given pulmonary edema and SOB. Expect to see Cr decrease after cysto. Trend BMP 05/11: Uric acid elevated 10.6. Will start on renally dosed allopurinol. S/P cystoscopy with Dr Diggs and is voiding appropriately. (3) 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ieved remission Status: Acute Assessment and Plan: Recently diagnosed and follows with oncologist at [facility] in [place] Dx with bone marrow biopsy. Was an incidental finding on labs WBC 36.8 today Just filled his prescription of hydroxyurea yesterday but had not yet started it due to feeling poorly (4) Hyperlipidemia: Code(s): E78.5 - Hyperlipidemia, unspecified Status: Acute Assessment and Plan: On atorvastatin daily. Stable. Continue home medication lipid panel ordered 05/11: Lipid panel reviewed. Continue with statin. (5) Essential hypertension: Code(s): I10 - Essential (primary) hypertension Status: Acute Assessment and Plan: Stable. Takes amlodipine daily blood pressures reviewed 05/10. Can restart home med 05/11: Blood pressures reviewed. (6) Hypothyroid: Code(s): E03.9 - Hypothyroidism, unspecified Status: Acute Assessment and Plan: Stable. On levothyroxine. TSH ordered 05/11: TSH elevated. Add-on T4 and Free T3. Plan Feeding:regular diet Analgesia:Morphine Thromboembolic prophylaxis: scd Ulcer prophylaxis: na Glycemic control: na Bowel regimen: na Lines: PIV Antibiotics: cefazolin for cysto Disposition: home DS: Summary Hospital Course Hospital Course: This is a 78-year-old male with a past medical history of hypothyroidism, high cholesterol, hypertension, and recent diagnosis of CML status post bone marrow biopsy.? He presented to the ER today with symptoms of right-sided abdominal/flank pain, nausea, and shortness of breath.? He says that he has been
[2023-05-12] MEDS: AMOXICILLIN/CLAVULANATE K 875-125 MG TAB 1 TABLET PO (15:55)
[2023-05-12] MEDS: AZITHROMYCIN 250 MG TABLET 500 MG PO (15:55)
[2023-05-31 16:19] LABS: T3 Free 1.8 pg/mL
== END 2023-05-12 16:45 | disposition home or self-care (01) | DRG 659 ==
LOC: ANHED 13:45 → ANHSURGERY 13:48 → ANH3MED 18:41
PROVIDERS: Urology; Admitting Provider Student in an Organized Health Care Education/Training Program; Emergency Provider General Practice; PCP Nurse Practitioner Family; Visit Provider Nurse Practitioner Acute Care
PROC: 0T778DZ Dilation of Left Ureter with Intraluminal Device, Via Natural or Artificial Opening Endoscopic (ICD-10-PCS; CPT 52352; principal; 2023-05-10 16:30)
DX: N20.2 Calculus of kidney with calculus of ureter (principal); J18.9 Pneumonia, unspecified organism; J96.01 Acute respiratory failure with hypoxia; C92.10 Chronic myeloid leukemia, BCR/ABL-positive, not having achieved remission; N13.30 Unspecified hydronephrosis; E03.9 Hypothyroidism, unspecified; E78.5 Hyperlipidemia, unspecified; I10 Essential (primary) hypertension; Z20.822 Contact with and (suspected) exposure to COVID-19
CPT/HCPCS: 36415; 36600; 71045; 71275; 74177; 80053; 80061; 81001; 82375; 82805; 83050; 83605; 83690; 83735; 83880; 84145; 84436; 84443; 84480; 84484; 84550; 85025; 85055; 85610; 85730; 87637; 93005; 93306; 96374; 96375; 99285; A9270; C1758; C1769; C2617; J0456; J0690; J0696; J1100; J1940; J2405; J2704; J3010; J7120; Q9966; Q9967

== ENCOUNTER → 2023-05-22 10:43 | Outpatient (CLI) | payer MEDICARE, OTHER, SELFPAY ==
--- NOTE | ~2023-05-22 | XR_ITS ---
EXAMINATION: XR abdomen/kub 1V DATE: 05/22/2023 11:04 INDICATION: Right ureteral stone. TECHNIQUE: A supine view of the abdomen on 2 radiographs was obtained. COMPARISON: CT abdomen and pelvis 05/10/2023 FINDINGS: There are no dilated loops of bowel. There is a right internal ureteral stent in expected p osition. There are 5 mm and 3 mm stones in right kidney. IMPRESSION: 1. Right kidney stones. 2. Right internal ureteral stent in expected position. Reviewed, dictated and finalized at location A. [employer]ER M[employer] OPERATOR
== END ==
PROVIDERS: PCP Urology; Visit Provider Urology
DX: N20.1 Calculus of ureter (principal)
CPT/HCPCS: 74018

== ENCOUNTER 2023-07-01 12:24 | Outpatient (CLI) | payer MEDICARE, OTHER, SELFPAY ==
[2023-07-01 13:44] LABS: Hematocrit 46.4 % (42.0-52.0); Hemoglobin 15.1 g/dL (14.0-18.0); Immature Platelet Fraction Pct 20.9 % (0.9-11.2); Mean Corpuscular HGB Conc 32.5 g/dl (32-36); Mean Corpuscular Hemoglobin 28.6 pg (26-34); Mean Corpuscular Volume 87.9 fl (80-100); Mean Platelet Volume 12.5 fl (7.4-10.4); Platelet Count Result 134 k/mm3 (150-375); Red Blood Count 5.28 M/mm3 (4.6-6.20); Red Cell Distribution Width 21.2 % (11.5-14.5); White Blood Count 26.6 K/mm3 (4.5-10.0)
[2023-07-01 14:05] LABS: INR 1.1; Partial Thromboplastin Time 49.3 SECONDS (22.3-36.8); Prothrombin Time 15.1 Seconds (11.1-14.7)
== END 2023-07-01 12:25 | disposition home or self-care (01) ==
PROVIDERS: Anesthesiology; PCP Urology; Visit Provider Urology
DX: N20.0 Calculus of kidney (principal); C92.10 Chronic myeloid leukemia, BCR/ABL-positive, not having achieved remission; Z01.818 Encounter for other preprocedural examination
CPT/HCPCS: 36415; 85027; 85055; 85610; 85730; 87086; 87088

== ENCOUNTER 2023-07-05 00:28 | Day surgery (SDC) | payer MEDICARE, OTHER, SELFPAY ==
--- NOTE | 2023-06-28 13:41 | PC.NURSE ---
Report to the Outpatient Waiting Room, entrance under the green pavilion located off [facility], at time _0600_ on date 07/05/22_. Planned Procedure Time: _0730 _. Time changes happen often and if your time is changed the preop area will call you the afternoon before. - You and your visitor will be asked to self-screen and do not enter if you have any COVID symptoms. - A mask is optional within the hospital at this time. Patients may have clear liquids (water, carbonated beverages, clear teas, apple juice) until 3 hours prior to surgery with a maximum of 20 ounces. - No food from midnight until time of surgery - Infants may have breast milk until 4 hours before surgery, infant formula 6 hours prior to surgery. - Children will be allowed to drink immediately following surgery. If applicable, please bring a bottle or sippy cup to assist with drinking. Juice, water, soda, and popsicles are readily available. For infants on formula, please bring formula the day of surgery. Pacifiers are allowed. Take the following medications with a SIP of water the morning of surgery: AMLODIPINE, LEVOTHYROXINE DO NOT STOP ANY OF YOUR OTHER PRESCRIPTION MEDICATIONS PRIOR TO SURGERY ?EXCEPT THE FOLLOWING Medications to discontinue per physician NONE Date to take last dose Please no make-up, nail hungarian, hairspray, perfume, deodorant, or body powder the day of surgery. No jewelry (including any body piercings) or valuables the day of surgery, leave them at home. Please take a shower or bath the night before, or the morning of, surgery with an antibacterial soap. Wear comfortable, loose fitting clothing. Children are encouraged to wear pajamas. - Jewelry must be removed prior to entering the operating room. Rings and piercings that are not removed may be cut off. - The hospital will not accept responsibility for valuables. - Please leave all valuables, including medications, at home the day of surgery. If you are going home after surgery, a licensed corrugated fastener driver must drive you home. - NO public transportation without another adult if you receive anesthesia. - We recommend that an adult stay with you for 24 hours following discharge. - We also recommend that you do not drive, make important decision, drink alcoholic beverages, or take any drugs that were not prescribed by your health care provider for at least 24 hours after your discharge time. For Pediatric surgeries, we recommend two adults accompany the child home. Follow any additional instructions given to you from your surgeon. If you or anyone in your household have experienced Covid symptoms in the past week, please notify your surgeon or the nurse liaison at the phone number below for possible testing. Telephone instructions given to PATIENT _and asked if any additional questions and then verbalized understanding. Patient advised to call surgeon office or pre surgery nurse liaison [phone] if any additional questions.
--- NOTE | 2023-07-03 07:37 | PM.HPGS ---
History of Present Illness History of Present Illness Consent: Risks, benefits, and alternatives have been discussed and questions answered. Patient agrees to proceed with procedure. Chief complaint: right renal stones Narrative: Oscar Vila is a 78 year old male who originally presented in late April 2023 with right flank pain. Imaging demonstrated a an obstructing 5-7 mm right proximal ureteral stone. On May 10 he underwent cystoscopy with right ureteral stent placement. Follow-up KUB in early May showed the stone to still be present in his right kidney. After discussion of options he elects for right ESWL with simultaneous cysto and stent removal. He is aware of the risks including, but not limited to, adverse cardiopulmonary events, need for additional procedures, hematuria and perinephric hematoma Review of Systems Cardiovascular: Cardiovascular: Denies chest pain, Denies lightheadedness, Denies palpitations and Denies dyspnea Respiratory: Respiratory: Denies dyspnea Gastrointestinal: Gastrointestinal: Denies diarrhea, Denies nausea and Denies vomiting Genitourinary: Genitourinary: Denies hematuria and Denies dysuria Endocrine: Endocrine: Denies palpitations PMFSH Past Medical History Medical History CML (chronic myelocytic leukemia) Essential hypertension Hyperlipidemia Hypothyroid Surgical History Surgical History H/O umbilical hernia repair Family History Family History (Updated 05/10/23 @ 17:32 by Juli Martines RN) Father Hiatal hernia Grandparent Malignant neoplasm of prostate Social History Social History Social History: Lives at home alone. He has 1 child a daughter, Helen Montesinos. He list his daughter Will Evans as his emergency contact. He also states that he has a living will. Smoking status: Never smoker Alcohol intake: current Drinks per week: 10 Alcohol use details: States he drinks a few beers a day Substance use: never Lack of Transportation: No Lack of Food: Never True Current Housing: I Have Housing Concerned About Future Housing: No Difficulty Paying Gas/Electric Bills: No Difficulty Paying for Meds: No Currently Unemployed: No Education: High School Diploma/GED Difficulty w/ Childcare or Family Care: No Living arrangements: alone Occupation/Education: retired Additional occupation/education comments: He is retired from the [employer] and works part-time with [employer]. Gender identity (if verbalized by the patient): Male Spiritual care concerns: No Meds Home Medications and Allergies Home Medications Medication Instructions Recorded Confirmed Type amlodipine 10 mg tablet 10 mg PO DAILY 05/10/23 06/28/23 History atorvastatin 10 mg tablet 10 mg PO DAILY 05/10/23 06/28/23 History levothyroxine 112 mcg tablet 112 mcg PO DAILY 05/10/23 06/28/23 History allopurinol 100 mg tablet 100 mg PO DAILY@0800 #30 tabs 05/12/23 06/28/23 Rx ruxolitinib 10 mg tablet (Jakafi) 10 mg PO BID 06/28/23 06/28/23 History Allergies Allergy/AdvReac Type Severity Reaction Status Date / Time shellfish derived Allergy Unknown Nausea and Verified 05/10/23 14:18 Vomiting Assessment and Plan Assessment and plan (1) Right ureteral stone: Code(s): N20.1 - Calculus of ureter Status: Acute Assessment and Plan: Right ESWL
--- NOTE | ~2023-07-05 | XR_ITS ---
Supine and upright views of the abdomen Clinical history: Lithotripsy COMPARISON: 05/22/2023 Findings: Bowel gas pattern is nonspecific. No evidence for obstruction or free air. Right ureteral s tent remains in place. Right renal stones are unchanged. Osseous structures are intact. Impression: Stable right nephrolithiasis and right ureteral stent. Reviewed, dictated and finalized at location . RETTE MAKING MACHINE CATCHER Impression: Stable right nephrolithiasis and right ureteral stent.
--- NOTE | 2023-07-05 06:09 | WPDHPUPDATE1 ---
History and Physical Update Update Date/Time: 07/05/23 06:09 History and Physical has been reviewed, including an updated exam of the patient. There are NO changes in the patient's condition. Risks, benefits, and alternatives have been discussed and questions answered. Patient agrees to proceed with procedure.
[2023-07-05 06:53] VITALS: BMI 26.4
--- NOTE | 2023-07-05 07:26 | P.PNAN_ITS ---
Anes - Eval Pre Procedure Procedure: Operation Date: 07/05/23 07:30 Proposed Procedures p Right Extracorporeal Shock Wave Lithotripsy - Morris Diggs MD s Cystoscopy with Right Stent Removal - Morris Diggs MD Date/Time: 07/05/23 07:26 Pre Op Diagnosis: right renal stones Patient Data Age: 78 Gender: M Height: 1.7 m Weight: 76.7 kg Allergies Allergy/AdvReac Type Severity Reaction Status Date / Time shellfish derived Allergy Unknown Nausea and Verified 07/05/23 06:37 Vomiting Home Medications Medication Instructions Recorded Confirmed Type amlodipine 10 mg tablet 10 mg PO DAILY 05/10/23 07/05/23 History atorvastatin 10 mg tablet 10 mg PO DAILY 05/10/23 07/05/23 History levothyroxine 112 mcg tablet 112 mcg PO DAILY 05/10/23 07/05/23 History allopurinol 100 mg tablet 100 mg PO DAILY@0800 #30 tabs 05/12/23 07/05/23 Rx ruxolitinib 10 mg tablet (Jakafi) 10 mg PO BID 06/28/23 07/05/23 History Laboratory Tests 07/05/23 07:07 PT Pending INR Pending APTT Pending Patient hx anesthesia problems: none Family hx anesthesia problems: none Results Review: All pre-operative results and documents have been reviewed as part of the pre- operative evaluation. [facility] Past Medical History Medical History (Updated 07/05/23 @ 07:26 by [place] Santa CRNA) Arthritis CML (chronic myelocytic leukemia) Essential hypertension Hyperlipidemia Hypothyroid Overweight Surgical History Surgical History H/O umbilical hernia repair Family History Family History (Updated 05/10/23 @ 17:32 by Juli Martines RN) Father Hiatal hernia Grandparent Malignant neoplasm of prostate Social History Social History Social History: Lives at home alone. He has 1 child a daughter, Helen Montesinos. He list his daughter Madeline and Skye Evans as his emergency contact. He also states that he has a living will. 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 Gender identity (if verbalized by the patient): Male Spiritual care concerns: No Exam Day of Procedure 07/05/23 07:26
[2023-07-05 07:29] VITALS: BP 140/68; PULSE 85; RESP 16; TEMP 36.8; O2SAT 99
--- NOTE | 2023-07-05 07:33 | WPDANESEPPF ---
Anes - Initial Pre Proc Eval Procedure: Operation Date: 07/05/23 07:30 Proposed Procedures p Right Extracorporeal Shock Wave Lithotripsy - Morris Diggs MD s Cystoscopy with Right Stent Removal - Morris Diggs MD Date/Time: 07/05/23 07:33 Surgeon: Morris Diggs MD Pre Op Diagnosis: right renal stones Patient Data Age: 78 Gender: M Height: 1.7 m Weight: 76.7 kg Last Vital Signs Temp 36.8 C 07/05/23 07:29 Pulse 85 07/05/23 07:29 Resp 16 07/05/23 07:29 BP 140/68 07/05/23 07:29 Pulse Ox 99 07/05/23 07:29 O2 Del Method Room Air 07/05/23 07:29 Allergies Allergy/AdvReac Type Severity Reaction Status Date / Time shellfish derived Allergy Unknown Nausea and Verified 07/05/23 06:37 Vomiting Home Medications Medication Instructions Recorded Confirmed Type amlodipine 10 mg tablet 10 mg PO DAILY 05/10/23 07/05/23 History atorvastatin 10 mg tablet 10 mg PO DAILY 05/10/23 07/05/23 History levothyroxine 112 mcg tablet 112 mcg PO DAILY 05/10/23 07/05/23 History allopurinol 100 mg tablet 100 mg PO DAILY@0800 #30 tabs 05/12/23 07/05/23 Rx ruxolitinib 10 mg tablet (Jakafi) 10 mg PO BID 06/28/23 07/05/23 History Laboratory Tests 07/05/23 07:07 PT Pending INR Pending APTT Pending Patient hx anesthesia problems: none Family hx anesthesia problems: none Results Review: All pre-operative results and documents have been reviewed as part of the pre-operative evaluation. [facility] Past Medical History Medical History (Updated 07/05/23 @ 07:26 by [place] Santa CRNA) Arthritis CML (chronic myelocytic leukemia) Essential hypertension Hyperlipidemia Hypothyroid Overweight Surgical History Surgical History H/O umbilical hernia repair Family History Family History (Updated 05/10/23 @ 17:32 by Juli Martines RN) Father Hiatal hernia Grandparent Malignant neoplasm of prostate Social History Social History Social History: Lives at home alone. He has 1 child a daughter, Helen Montesinos. He list his daughter Madeline and Skye Evans as his emergency contact. He also states that he has a living will. 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 Gender identity (if verbalized by the patient): Male Spiritual care concerns: No Anes - Eval Final PreProcedure Day of Procedure 07/05/23 07:33 Patient weight: overweight Heart: regular rate and rhythm Lungs: decreased breath sounds Airway: Mallampati scale class II Neurological: alert and oriented Last oral intake: >/= 8 hours ASA classification: III Emergent: no Anesthetic plan: proceed Anesthesia type and monitoring: general LMA and standard monitoring Results Review: All pre-operative results and documents have been reviewed as part of the pre-operative evaluation. Informed Consent: The patient's anesthetic plan and its attendant risks and benefits were discussed with the patient/family/POA. Questions were solicited and answers provided to the satisfaction of the patient/family/POA.
[2023-07-05 07:45] LABS: INR 1.1; Partial Thromboplastin Time 44.1 SECONDS (22.3-36.8); Prothrombin Time 14.6 Seconds (11.1-14.7)
[2023-07-05] MEDS: LACTATED RINGERS 1,000 ML 30 ML IV CONT (07:53)
[2023-07-05] MEDS: ceFAZolin 2 GM/D5W 50 ML 2 GM/50 ML BAG IVPB (07:54)
--- NOTE | 2023-07-05 08:09 | P.OP_ITS ---
Procedure Note - Detailed Date of Procedure 07/05/23 Pre-op Diagnosis Right renal stones Post-op Diagnosis Same Procedure Performed Cystoscopy, right ureteral stent removal, right ESWL Surgeon Morris Diggs MD Anesthesia General Description of Procedure The patient was brought to the operative suite where he was placed in the supine position on the Dornier lithotripter table. Flexible cystoscopy was undertaken with a 16F flexible cystoscopy. There were no urethral strictures. The prostatic urethra estimated length was 2.0cm. There was no obstruction of the prostatic urethra with no median lobe enlargement. The bladder mucosa was normal and there was a single, orthotopic ureteral orifice bilaterally. the tip of the indwelling stent is grasped the stent is removed with ease. The patient was then repositioned in the supine position with the focal point of the lithotriptor on To contiguous stones in the right renal pelvis, on measuring 3 mm and the other 5-6 mm. A total of 2500 shocks were delivered at a power setting of 4. There appeared to be good fragmentation of the stone. The nahed ent tolerated the procedure well and was taken to the recovery room in good condition. Drains No Packing No Pathology None sent Complications No immediate complications Condition Stable
[2023-07-05 08:41] VITALS: BP 117/67; PULSE 84; RESP 14; TEMP 36.4; O2SAT 100
[2023-07-05 08:50] VITALS: BP 133/64; PULSE 79; RESP 17; O2SAT 95
[2023-07-05 09:01] VITALS: BP 133/63; PULSE 80; RESP 18; O2SAT 96
[2023-07-05 09:10] VITALS: BP 131/71; PULSE 79; RESP 17; O2SAT 97
[2023-07-05 09:40] VITALS: BP 142/69; PULSE 78; RESP 17
== END 2023-07-05 09:57 | disposition home or self-care (01) ==
PROVIDERS: PCP Nurse Practitioner Family; Visit Provider Urology
PROC: (CPT 50590; principal; 2023-07-05 07:30)
PROC: (CPT 52310; 2023-07-05 07:30)
DX: N20.0 Calculus of kidney (principal); C92.10 Chronic myeloid leukemia, BCR/ABL-positive, not having achieved remission; E78.5 Hyperlipidemia, unspecified; E03.9 Hypothyroidism, unspecified
CPT/HCPCS: 50590; 52310; 36415; 74018; 85610; 85730; J0690; J1100; J2405; J2704; J3010; J7030; J7120

== ENCOUNTER 2023-07-24 14:02 | Outpatient (CLI) | payer MEDICARE, OTHER, SELFPAY ==
--- NOTE | ~2023-07-24 | XR_ITS ---
Supine and upright views of the abdomen Clinical history: Right-sided stone COMPARISON: 07/05/2023 Findings: Bowel gas pattern is nonspecific. No evidence for obstruction or free air. Suspected small right renal stones measuring up to 2 mm. Right ureteral stent has been removed. Osseous structures ar e intact. Impression: Suspected small right renal stones, as above. Interval removal of right ureteral stent. Reviewed, dictated and finalized at location . REPOSSESSOR Impression: Suspected small right renal stones, as above. Interval removal of right uretera l stent.
== END 2023-07-24 14:03 | disposition home or self-care (01) ==
LOC: ANHLAB 14:06
PROVIDERS: PCP Nurse Practitioner Family; Visit Provider Urology
DX: N20.0 Calculus of kidney (principal)
CPT/HCPCS: 74018

== ENCOUNTER 2023-08-26 03:55 | Inpatient (IN) | payer MEDICARE, OTHER, SELFPAY ==
[2023-08-26] VITALS (43 sets, daily range): BP systolic 99–141; BP diastolic 45–58; PULSE 79–105; RESP 22–39; TEMP 36.4–37.7; O2SAT 88–100; BMI 24.9
--- NOTE | ~2023-08-26 | CT_ITS ---
EXAMINATION: CTA chest PE protocol DATE: 08/26/2023 05:18 INDICATION: Dyspnea. TECHNIQUE: Computed tomography angiography (CTA) of the chest was performed with 100 mL Omnipaque-350 intravenous contrast timed to evaluate the pulmonary arteries. Coronal maximum intensity projection 3D-reconstructions were created by the technologist. Automated exposure control and iterative reconst ruction technique were employed. The dose-length product was 777.90 mGy-cm. COMPARISON: Chest CT 05/10/2023 FINDINGS: There is widespread septal thickening with groundglass opacities and extensive crazy paving involving all lobes. There are small pleural effusions. The heart size is normal. There are coronary artery calcifications. No pericardial effusion. There is no pulmonary embolus. The liver demonstrate s surface nodularity suspicious for cirrhosis. 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 There is a 19 mm cyst in left kidney. There is mild thoracic spondylosis. IMPRESSION: 1. No pulmonary embolus. 2. Severe diffuse lung disease, consistent with pulmonary edema or less likely pneumonia. 3. Small pleural effusions. 4. Liver surface nodularity suspicious for cirrhosis. Reviewed, dictated and finalized at location E. E RACING ANALYST
--- NOTE | ~2023-08-26 | XR_ITS ---
Portable chest x-ray Comparison: 08/27/2023 Clinical History: CHF Findings: Diffuse airspace consolidation is present, probably mildly worsened from prior exam. Card iomediastinal silhouette is stable. Bones and soft tissues are unremarkable. Impression: Diffuse airspace consolidation. Correlate for advanced pulmonary edema versus diffuse pneumonia. Reviewed, dictated and finalized at [facility]. CH COUPLER Impression: Diffuse airspace consolidation. Correlate for advanced pulmonary edema versus d iffuse pneumonia.
--- NOTE | ~2023-08-26 | XR_ITS ---
EXAMINATION: XR chest 1V portable DATE: 08/27/2023 05:50 INDICATION: Congestive heart failure. Pneumonia. TECHNIQUE: A single frontal view of the chest was obtained. COMPARISON: Chest single view 08/26/2023, chest CT 08/26/2023 FINDINGS: The patient is rotated to his right. There are airspace and interstitial opacities througho ut the lungs bilaterally. No pleural effusion or pneumothorax. The heart size is normal. IMPRESSION: 1. Diffuse lung disease with improvement in right upper lobe, consistent with pulmonary edema versus pneumonia. Reviewed, dictated and finalized at location E. EXPEDITOR IMPRESSION: 1. Diffuse lung disease with improvement in right upper lobe, consistent with p ulmonary edema versus pneumonia.
--- NOTE | ~2023-08-26 | XR_ITS ---
EXAMINATION: XR chest 1V portable DATE: 08/26/2023 04:37 INDICATION: Dyspnea. TECHNIQUE: A single frontal view of the chest was obtained. COMPARISON: Chest single view 05/11/2023 FINDINGS: There are airspace and interstitial opacities throughout the lungs bilaterally. No pleural effusion or pneumothorax. The heart size is normal. IMPRESSION: 1. Worsened diffuse lung disease, consistent with pulmonary edema versus pneumonia. Reviewed, dictated and finalized at location E. OR APPLICATION SECURITY CONSULTANT IMPRESSION: 1. Worsened diffuse lung disease, consistent with pulmonary edema versus pneumo dayan.
--- NOTE | 2023-08-26 03:57 | ECG_ITS ---
Measurements Intervals [place] Rate: 96 P: 33 CT: 176 QRS: -1 QRSD: 93 T: 18 QT: 333 QTc: 422 Interpretive Statements SINUS RHYTHM VENTRICULAR PREMATURE COMPLEXES CONSIDER INFERIOR INFARCT, AGE INDETERMINATE NONSPECIFIC ST & T-WAVE ABNORMALITY- ANTEROLAT/HIGH LAT LEADS BASELINE ARTIFACT- II, III, AVR, AVL, AVF, V1-V6 ABNORMAL ECG COMPARED TO ECG 05/10/2023 11:10:45 VENTRICULAR PREMATURE COMPLEXES NOW PRESENT Electronically Signed On 08-26-2023 6:50:05 HEEL SEAT FILLER by Toni Chamorro D.O.
--- NOTE | 2023-08-26 04:03 | ED.GENADULT ---
HPI - General Adult General Chief complaint: Shortness of Breath/Dyspnea Stated complaint: sob Time Seen by Provider: 08/26/23 03:57 History of Present Illness HPI narrative: Patient 78-year-old gentleman who presents emergency department with chief complaint of shortness of breath. Patient reports that he had COVID and since then has been short of breath the patient was admitted for hypoxic respiratory failure back in April at that time he was COVID negative. The patient reports that he is DNR and does not want to be intubated. Patient denies chest pain reports that he has had a cough Related Data Home Medications Medication Instructions Recorded Confirmed amlodipine 10 mg tablet 10 mg PO DAILY 05/10/23 07/05/23 atorvastatin 10 mg tablet 10 mg PO DAILY 05/10/23 07/05/23 levothyroxine 112 mcg tablet 112 mcg PO DAILY 05/10/23 07/05/23 ruxolitinib 10 mg tablet (Jakafi) 10 mg PO BID 06/28/23 07/05/23 Allergies Allergy/AdvReac Type Severity Reaction Status Date / Time shellfish derived Allergy Unknown Nausea and Verified 07/05/23 06:37 Vomiting Review of Systems Review of Systems: A 10 system review of systems was completed on the patient and is negative except for what is stated in the HPI. Nursing and ancillary documentation was reviewed. PMFSH Past Medical History Medical History Arthritis CML (chronic myelocytic leukemia) Essential hypertension Hyperlipidemia Hypothyroid Overweight Surgical History Surgical History H/O umbilical hernia repair Family History Family History Father Hiatal hernia Grandparent Malignant neoplasm of prostate Social History Social History Social History: Lives at home alone. He has 1 child a daughter, Helen Montesinos. He list his daughter Madeline and Skye Evans as his emergency contact. He also states that he has a living will. 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 Gender identity (if verbalized by the patient): Male Spiritual care concerns: No Course Course Emergency Course: GENERAL: Ill-appearing, well-nourished, and in no acute distress. HEAD: Normocephalic, atraumatic. EYES: PERRLA and EOMI. ENT: Nares clear, no rhinorrhea or epistaxis. Mucous membranes moist. NECK: Supple. CHEST: Clear to auscultation. No respiratory distress. HEART: Regular rate and rhythm. No murmur heard. Normal peripheral pulses. ABDOMEN: Soft, nontender, nondistended, normal active bowel sounds. EXTREMITIES: Normal range of motion. No edema. SKIN: Warm, dry, no rash. NEURO: No focal deficits. Alert and oriented x3. PSYCH: Normal mood and affect. Vital Signs Vital signs: Vital Signs Temperature 37.7 C H 08/26/23 03:53 Pulse Rate 105 H 08/26/23 03:53 Respiratory Rate 33 H 08/26/23 03:53 Blood Pressure 141/50 H 08/26/23 03:53 Pulse Oximetry 88 L 08/26/23 03:53 Oxygen Delivery Non-Rebreather Mask 08/26/23 03:53 Oxygen Flow Rate 15 08/26/23 03:53 Temperature 37.7 C H 08/26/23 03:53 Pulse Rate 89 08/26/23 05:31 Respiratory Rate 33 H 08/26/23 05:31 Blood Pressure 119/52 L 08/26/23
[2023-08-26] MEDS: IPRATROPIUM 0.5 MG/ALBUTEROL SULFATE 2.5 MG AMPUL.NEB 3 ML INHALATION ×3 (04:18→20:03)
[2023-08-26 04:24] LABS: Basophils Absolute Auto 0.1 K/mm3 (0.0-0.1); Basophils Percent Auto 0.3 % (0.2-1.2); Eosinophils Absolute Auto 0.1 K/mm3 (0-0.3); Eosinophils Percent Auto 0.4 % (0-4.4); Hematocrit 29.9 % (42.0-52.0); Hemoglobin 9.6 g/dL (14.0-18.0); Immature Granulocyte Absolute 0.66 K/mm3 (0.00-0.031); Immature Granulocyte Percent A 3.2 % (0-0.5); Lymphocytes Absolute Auto 2.73 K/mm3 (0.9-3.2); Lymphocytes Percent Auto 13.3 % (18.3-44.2); Mean Corpuscular HGB Conc 32.1 g/dl (32-36); Mean Corpuscular Hemoglobin 29.7 pg (26-34); Mean Corpuscular Volume 92.6 fl (80-100); Mean Platelet Volume 12.2 fl (7.4-10.4); Monocytes Absolute Auto 4.1 K/mm3 (0.1-0.6); Monocytes Percent Auto 19.9 % (2.6-8.5); Neutrophils Absolute Auto 12.8 K/mm3 (1.3-6.7); Neutrophils Percent Auto 62.9 % (45.5-73.1); Nucleated Red Blood Cells Perc 0.1 % (0.0-0.2); Platelet Count Result 281 k/mm3 (150-375); Red Blood Count 3.23 M/mm3 (4.6-6.20); Red Cell Distribution Width 23.8 % (11.5-14.5); White Blood Count 20.5 K/mm3 (4.5-10.0)
[2023-08-26 04:28] LABS: INR 1.1; Prothrombin Time 14.9 Seconds (11.1-14.7)
[2023-08-26 04:29] LABS: Partial Thromboplastin Time 33.2 SECONDS (22.3-36.8)
[2023-08-26 04:31] LABS: Alanine Aminotransferase 35 U/L (6-50); Albumin Level 4.5 g/dL (3.5-5.1); Alkaline Phosphatase 243 U/L (38-126); Anion Gap 15 mmol/L (8-16); Aspartate Amino Transferase 50 U/L (17-59); Bilirubin,Total 1.3 mg/dL (0.2-1.3); Blood Urea Nitrogen 26 mg/dL (9-20); Calcium 9.5 mg/dL (8.4-10.2); Carbon Dioxide 15 mmol/L (22-30); Chloride 105 mmol/L (98-107); Estimated CRCL calculation 38 ml/min; Estimated Glomerular Filt Rate 49; Glucose 184 mg/dL (65-110); Lactic Acid Reflex 2.6 mmol/L (0.7-2.0); Magnesium 2.4 mg/dL (1.6-2.3); Potassium 3.9 mmol/L (3.4-5.0); Sodium 135 mmol/L (137-145)
[2023-08-26 04:32] LABS: Base Excess ABG -6.1 mEq/l (+/-2.0); PO2 ABG 296.4 mmHg (80.0-100.0)
[2023-08-26 04:33] LABS: Alveolar/Arterial O2 Gradient 380.6 mmHg; Oxygen Content ABG 14.7 %vol (16.0-22.0); Oxygen Saturation ABG 99.7 % (95.0-100.0); Total Hemoglobin 10.1 g/dL (12.0-18.0)
[2023-08-26 04:34] LABS: Device NON-INVASIVE VENT; Fractional Inspired Oxygen 100 %; Modified Allen's Test Pass; Oxyhemoglobin 98.4 % THb (90.0-100.0); PO2 FiO2 Ratio Arterial Blood 2.96 %; Site Drawn RIGHT RADIAL
[2023-08-26 04:35] LABS: Non-Invasive Expiratory Pressure 7 CMH2O; Non-Invasive Inspiratory Pressure 14 CMH2O; Non-Invasive Vent Rate 12 /MIN
[2023-08-26 04:50] LABS: NT Pro B Type Natriuretic Pept 1360 pg/mL (19.9-100)
[2023-08-26 04:52] LABS: Influenza A QL RT-PCR Negative (Negative); Influenza B QL RT-PCR Negative (Negative); RSV RNA, RT-PCR Negative (Negative); SARS-CoV-2 RNA PCR Negative (Negative)
[2023-08-26 04:56] LABS: Procalcitonin 0.1 ng/mL
[2023-08-26 04:58] LABS: Anisocytosis 2+ (NORMAL); Platelet Estimate Adequate (Adequate)
[2023-08-26 04:59] LABS: Spherocytes 1+ (NORMAL)
[2023-08-26 05:00] LABS: Schistocytes Rare (NORMAL)
[2023-08-26] MEDS: AZITHROMYCIN 500 MG/NS 250 ML 500 MG/250 ML BAG 250 MG IVPB (05:19)
[2023-08-26] MEDS: ASPIRIN 81 MG CHEWABLE TABLET 324 MG PO (05:23)
--- NOTE | 2023-08-26 07:03 | ADMGEN ---
This patient, Oscar Vila, was admitted to IMU Room 201-01 on 08/26/23 at 0658. Patient/family oriented to hospital policies and general routines including ID bracelet, bed and alarms, visiting hours, pain management, procedures, bathroom and other care routines, personal items, smoking policy, room service/diet, and visiting hours. Information on how to activate the Rapid Response Team has been discussed. Patient/Family are encouraged to report perceived risks to care and to ask questions if they do not understand what they are told or what they should do.
[2023-08-26 07:13] LABS: Reflex Lactic Acid Yes or No Add Lactic
[2023-08-26 07:56] LABS: Lactic Acid 2.2 mmol/L (0.7-2.0)
[2023-08-26 08:21] LABS: Troponin I 0.475 ng/mL (0.000-0.034)
--- NOTE | 2023-08-26 09:58 | ECHO_ITS ---
Patient Info Name: Oscar Vila Age: 78 years : 1945 Gender: Male Ht: 67 in Wt: 159 lbs BSA: 1.86 m2 HR: 50 bpm BP: 109 / 47 mmHg Heart Rhythm: Sinus Rhythm Technical Quality: Fair Exam Date: 08/26/2023 12:55 PM Exam Location: Echo Lab Exam Room: [facility] Patient Status: Inpatient Admit Date: 08/26/2023 Staff Ordering Physician: Claudy Morales M.A., MD Process Design Chemical Engineer: Joy Steiner RDCS Attending Provider: Danae Mendoza MD Referring Physician: John FLORES; Exam Type: CA echo dop color flow w con Study Info Indications - syncope Complete two-dimensional, color flow and Doppler transthoracic echocardiogram is performed with contrast to opacify the left ventricle and to improve the deliniation of the left ventricle endocardial borders. Contrast/Agitated Saline Contrast/Ag. Saline: Definity Amount: 2.00 ml Administered By: Joy Steiner [facility] Existing IV Access: Yes IV Access Condition: patent with no signs of infiltration Summary 1. Left ventricular hypertrophy with normal LV size and well-preserved systolic function. 2. Grade 2 diastolic noncompliance. 3. Dilated left atrium. 4. Mitral annular calcification. 5. Trileaflet sclerotic aortic valve which is not stenotic. Left Ventricle Left ventricular chamber dimension is normal. Left ventricular systolic function is normal, estimated at 60-65%. There is mild concentric increased left ventricular wall thickness. The left ventricular diastolic function is grade II diastolic dysfunction. Right Ventricle Right ventricular chamber dimension is normal. Left Atria Left atrial chamber dimension is moderately enlarged. Right Atria Right atrial chamber dimension is normal. Aortic Valve The aortic valve is trileaflet. There is moderate aortic valve sclerosis. There is no aortic valve stenosis. Pulmonic Valve The pulmonic valve is not well visualized. Mitral Valve The mitral valve has normal leaflets. The mitral valve annulus is mildly calcified. Tricuspid Valve The tricuspid valve leaflets are normal. Pericardium/Pleural The pericardium appears normal. Aorta The aortic root size at the sinus of Valsalva is normal. Left Ventricular Outflow Tract Name Value Normal LVOT 2D LVOT Diameter 2.04 cm LVOT Doppler LVOT Peak Gradient 7 mmHg LVOT Mean Gradient 5 mmHg LVOT VTI 27.47 cm LVOT VTI/AV VTI Ratio 0.78 LVOT Stroke Volume 89.61 ml LVOT CO 20.62 l/min LVOT CI 11.11 L/min/m2 Pulmonic Valve Name Value Normal RVOT Doppler RVOT Peak Gradient 2 mmHg PV Doppler PV Peak Gradient 5 mmHg Mitral Va
--- NOTE | 2023-08-26 10:01 | ECG_ITS ---
Measurements Intervals [place] Rate: 83 P: 47 CO: 193 QRS: 2 QRSD: 106 T: 7 QT: 372 QTc: 439 Interpretive Statements SINUS RHYTHM CONSIDER INFERIOR INFARCT, AGE INDETERMINATE BASELINE ARTIFACT- III, AVF, V3 ABNORMAL ECG COMPARED TO ECG 08/26/2023 03:57:37 NO SIGNIFICANT CHANGES Electronically Signed On 08-26-2023 10:58:59 CHASER APPRENTICE by Toni Chamorro D.O.
--- NOTE | 2023-08-26 10:06 | PM.IMHP ---
H&P: HPI History of Present Illness Date/Time: 08/26/23 10:06 Chief Complaint: 78 years old male with past medical history of COVID-19 leukemia kidney stone presented to the hospital with worsening shortness of breath associated with cough multiple times a day shortness of breath worsen with activities denies fever or chills chest x-ray concern for pneumonia CT scan of the chest negative for PE concern for bilateral pneumonia versus pulmonary edema patient has recent echo ejection fraction was 60% troponin was mildly elevated patient denies any chest pain patient also has elevated BNP cardiology was consulted was started IV antibiotic IV diuresis BiPAP pulmonology and cardiology was consulted Review of Systems Review of Systems: 12 system review was done negative except above PMFSH Past Medical History Medical History Arthritis CML (chronic myelocytic leukemia) Essential hypertension Hyperlipidemia Hypothyroid Overweight Surgical History Surgical History H/O umbilical hernia repair Family History Family History Father Hiatal hernia Grandparent Malignant neoplasm of prostate Sibling Lung cancer Spina bifida Social History Social History Social History: Lives at home alone. He has 1 child a daughter, Helen Montesinos. He list his daughter Madeline and Skye Evans as his emergency contact. He also states that he has a living will. Smoking status: Never smoker Second hand tobacco smoke exposure: No Alcohol intake: current Drinks per week: 10 Alcohol use details: States he drinks a few beers a day Substance use: never Substance use type: does not use Do You Feel Safe in your Home?: Yes Lack of Transportation: No Lack of Food: Never True Current Housing: I Have Housing Concerned About Future Housing: No Difficulty Paying Gas/Electric Bills: No Difficulty Paying for Meds: No Currently Unemployed: No Education: High School Diploma/GED Difficulty w/ Childcare or Family Care: No Living arrangements: alone Occupation/Education: retired Additional occupation/education comments: He is retired from the [employer] and works part-time with [employer]. Gender identity (if verbalized by the patient): Male Spiritual care concerns: No Meds Home Medications and Allergies Home Medications Medication Instructions Recorded Confirmed Type amlodipine 10 mg tablet 10 mg PO DAILY 05/10/23 08/26/23 History atorvastatin 10 mg tablet 10 mg PO DAILY 05/10/23 08/26/23 History levothyroxine 112 mcg tablet 112 mcg PO DAILY 05/10/23 08/26/23 History ruxolitinib 10 mg tablet (Jakafi) 10 mg PO BID 06/28/23 08/26/23 History hydrocodone 5 mg-acetaminophen 325 1 - 2 tablet PO Q6H PRN pain #20 07/05/23 08/26/23 Rx mg tablet tabs albuterol sulfate 90 mcg/actuation 2 inh inhalation Q4H PRN Shortness 08/26/23 08/26/23 History aerosol inhaler Of Breath Allergies Allergy/AdvReac Type Severity Reaction Status Date / Time shellfish derived Allergy Unknown Nausea and Verified 07/05/23 06:37 Vomiting Vital Signs Vital Signs - 24 hr 08/26/23 03:53 08/26/23 04:04 08/26/23 04:05 Temperature 100 F H Pulse Rate 105 H 105 H Respiratory Rate 33 H Blood Pressure 141/50 H Pulse Oximetry 88 L Oxygen Delivery Non-Rebreather Mask BiPAP Oxygen Flow Rate 15 08/26/23 04:16 08/26/23 04:19 08/26/23 04:19 Temperature Pulse Rate 87 87 88 Respiratory Rate 27 H 30 H 28 H Blood Pressure 125/52 L Pulse Oximetry 100 100 Oxygen Delivery BiPAP Oxygen Flow Rate 08/26/23 04:18 08/26/23 04:30 08/26/23 04:31 Temperature Pulse Rate 87 91 92 Respiratory Rate 27 H 39 H 37 H Blood Pressure 105/58 L Pulse Oximetry 10
[2023-08-26] MEDS: CEFEPIME 1 GM/NS 50 ML 1 GM/50 ML BAG IVPB (11:04)
[2023-08-26] MEDS: LEVOTHYROXINE SODIUM 112 MCG TABLET PO (11:05)
[2023-08-26] MEDS: ATORVASTATIN 10 MG TABLET PO (11:05)
[2023-08-26 11:27] LABS: Troponin I 0.917 ng/mL (0.000-0.034)
[2023-08-26] MEDS: VANCOMYCIN 1,750 MG/NS 500 ML 1,750 MG/500 ML BAG 250 MG IVPB (11:56)
[2023-08-26] MEDS: FUROSEMIDE INJ 40 MG/4 ML VIAL IV PUSH (11:56)
[2023-08-26] MEDS: NITROGLYCERIN OINTMENT 1 INCH DOSE TRANSDERM ×3 (11:57→23:34)
[2023-08-26] MEDS: guaiFENesin/DEXTROMETHORPHAN 10 ML UDC PO (11:57)
--- NOTE | 2023-08-26 12:14 | PCSTNOTE ---
Patient swallowing evaluation remains on hold as patient remains on BiPAP. Will check in later today or tomorrow morning.
--- NOTE | 2023-08-26 12:19 | PM.CNCAR ---
Assessment and Plan Assessment and plan (1) Elevated troponin: Code(s): R79.89 - Other specified abnormal findings of blood chemistry Status: Acute Assessment and Plan: Patient has elevated troponins that are concerning for ACS. His clinical syndrome of acute shortness of breath may be is anginal equivalent. He has been having some exertional chest pain as of late also. CT does not show any pulmonary embolism. Will start nitroglycerin paste 1 in Q 6 hours. Furosemide 40 mg IV x1. Will start heparin drip per protocol. 2D echocardiogram Doppler is ordered will be reviewed. Patient is a DNR he is willing to hold will rescind his DNR status for cardiac workup if need be. Will repeat a troponin at 2:30 a.m.. Depending on how he response to treatment, likely proceed to a coronary angiogram to define his anatomy. Aspirin 81 mg p.o. daily also to be given and will increase his Atorvastatin to 20 mg daily (2) Elevated serum creatinine: Code(s): R79.89 - Other specified abnormal findings of blood chemistry Status: Acute Assessment and Plan: Follow renal function (3) Pulmonary edema: Code(s): J81.1 - Chronic pulmonary edema Status: Acute Assessment and Plan: Furosemide given as above (4) Hyperlipidemia: Code(s): E78.5 - Hyperlipidemia, unspecified Status: Acute Assessment and Plan: Increasing statin (5) Essential hypertension: Code(s): I10 - Essential (primary) hypertension Status: Acute Assessment and Plan: At goal (6) 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ieved remission Status: Acute Assessment and Plan: Follows with Oncology at [facility] History of Present Illness History of Present Illness Consult date/time: 08/26/23 12:19 Requesting physician: Claudy Morales M.A., MD Consult reason: Other (Elevated troponin) Reason For Visit: sob Narrative: Reason for consultation: Elevated troponin Requesting provider: Dr. Morales Date of service 08/26/2023 History patient is a 78-year-old male who has a history of leukemia, history of COVID, hypertension, hyperlipidemia who presented to the hospital with acute onset of shortness of breath. Patient has been intermittently short of breath for the past week or so. He received antibiotic which seemed to help initially but last night he became acutely short of breath. CT scan was performed showing diffuse lung disease consider edema but no pulmonary embolism. Troponins are elevated and rising. Cardiology consultation was therefore initiated. Upon further questioning, he admits to some anterior chest pain intermittently for the past couple of weeks. It was exertional and improved with rest. He denies any syncope, presyncope, paroxysmal nocturnal dyspnea or orthopnea or edema. Review of Systems Review of Systems: All systems reviewed & are unremarkable except as noted in HPI and below Constitutional: Constitutional: Denies lethargy Eyes: Eyes: Denies blurry vision ENT: Reports Normal hearing present Cardiovascular: Cardiovascular: Reports chest pain Respiratory: Respiratory: Reports dyspnea Gastrointestinal: Gastrointestinal: Denies abdominal pain Genitourinary: Genitourinary: Denies hematuria Musculoskeletal: Musculoskeletal: Denies back pain Integumentary/Breasts: Skin/Breast: Denies erythema Neurologic: Denies Abnormal speech present Psychiatric: Psychiatric: Denies anxiety Endocrine: Endocrine: Denies excessive sweating Hematologic/Lymphatic: Hematologic/Lymphatic: Denies easy bleeding Allergic/Immunologic: Allergic/Immunologic: Denies GI upset with certain foods PMFSH Past Medical History Medical History Arthritis CML (chronic myelocytic leukemia) Essential hypertension Hyperlipidemia Hypothyroid Overwei
--- NOTE | 2023-08-26 13:16 | PCPTNOTE ---
Attempted PT evaluation, per RN, pt is on continuous BiPAP. Pt not medically appropriate at this time. Will follow.
[2023-08-26] MEDS: HEPARIN SOD/D5W 100 UNITS/ML 25,000 UNITS/250 ML BAG 9 UNITS IV CONT (13:29)
--- NOTE | 2023-08-26 13:30 | PCOTNOTE ---
Attempted OT evaluation, per RN, pt is on continuous BiPAP. Pt not medically appropriate at this time. Will follow.
[2023-08-26] MEDS: PERFLUTREN LIPID MICROSPHERES 1.5 ML VIAL DILUTED TO 10 ML TOTAL VOLUME IV PUSH (14:00)
--- NOTE | 2023-08-26 14:40 | PM.CNPUL ---
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 He has an elevated BNP, positive troponins, CT angiogram that shows no PE, diffuse interstitial alveolar infiltrates consistent with congestion cannot rule out pneumonia. Patient feels better than he was 12 hours ago after diuresis and ceftriaxone and azithromycin x1 dose which has been switched to vancomycin and cefepime. currently the patient states he is improved. Etiology of patient's hypoxemic respiratory failure include fluid overload, pneumonia (bacterial and viral), doubt PE, sepsis, pulmonary leukostasis or drug reaction to Jakafi. Plan: agree with as aggressive diuresis as tolerated by his cardiac and renal systems per Cardiology, Renal and hospitalist. Echocardiogram is pending. He is scheduled get Lasix 40 later tonight. Agree with broad-spectrum antibiotics as he is recently been in the hospital in April of 2023 and has been immunosuppressed with his cancer and his medication. Continue vancomycin, cefepime and azithromycin. Cultures are pending. Respiratory pathogen panel pending. I will send a repeat COVID, influenza and RSV swab in 48 hours. Discuss Jakafi discontinuation syndrome with Oncology. When I enter the room the patient was in respiratory distress on BiPAP breathing 42 times a minute and said that the mask was very uncomfortable and it was hard for him to breathe. He was on 80% with saturations 97%. I changed him to a noninvasive ventilator mode with the AVAPS mode and adjusted settings to comfort resulting in a rate of 26, tidal volume of 550, EPAP 5, minimal inspiratory pressure 6, maximal inspiratory pressure 25, inspiratory time 0.8, rise of 1 which is are fastest and 70% FiO2 with saturations 96%. I will check an ABG in the morning. Patient is DNR and he confimred this with me. Discussed with Dr. Morales. Follow with you. History of Present Illness History of Present Illness Consult date: 08/26/23 Chief complaint: Acute Hypoxic Respiratory Failure/Pneumonia Narrative: 08/26/2023: This is a new pulmonary consult for respiratory failure. 78-year-old with a history of CML, kidney stones, COVID, hypertension, hyperlipidemia presented to the emergency department on 08/26/2023 with shortness of breath. The patient is currently on BiPAP in moderate respiratory distress is difficult for him to talk. The patient states that 2 weeks ago he developed a cough and since then has had worsening shortness of breath it got acutely worse today. He presented to the emergency room with a white blood cell count of 20.5, creatinine of 1.40, serum bicarbonate 15, BNP of 1360, procalcitonin 0.1, COVID, RSV and influenza RT PCR studies negative. Patient troponin was positive. CT angiogram of the chest showed no PE, diffuse interstitial alveolar infiltrates consistent with congestion. There were no pleural effusions. There were no consolidations. The patient was in respiratory distress and treated with BiPAP rate of 12, pressures 14/7 and 100% FiO2 with a blood gas of 7.34/36/296. He was started on ceftriaxone and azithromycin given IV Lasix. He was later switched to vancomycin and cefepime. When I enter the room the patient was in respiratory distress on BiPAP breathing 42 times a minute and said that the mask was very uncomfortable and it was hard for him to breathe. He was on 80% with saturations 97%. I changed him to a noninvasive ventilator mode with the AVAPS mode and adjusted settings to comfort resulting in a rate of 26, tidal volume of 550, EPAP 5, minimal inspiratory pressure 6, maximal inspiratory pressure 25, inspiratory time 0.8, rise of 1 which is are f
--- NOTE | 2023-08-26 15:25 | IVDEFINITY ---
Prior to administration of IV Definity the patient was educated on the risks and benefits of the imaging enhancing agent including potential adverse side effects. The patient verbalized understanding. Allergies were verified. No exclusion criteria were identified and at least one of the following inclusion criteria were met: 1) physician request, 2) patient technically difficult to image (per the [place] [employer]chocardi[employer] guidelines of two or more segments not discernable within the apical view), or 3) questionable left ventricular function. ?
[2023-08-26] MEDS: IPRATROPIUM BR 0.02% INH SOLN 0.5 MG/2.5 ML VIAL INHALATION ×2 (16:41→20:03)
--- NOTE | 2023-08-26 16:52 | PDONCCN ---
HPI - Date of Consult Date/Time: 08/26/23 16:52 Requesting Physician: Danae Menodza MD Primary Care Provider: GABBY HUERTAS, MANAGER PHOTO - Consult Narrative Reason for consult: Primary Myelofibrosis Narrative: Oscar Vila is a 78 year old male with a past medical history of primary myelofibrosis, HTN, HLD, hypothyroidism. The patient presents all the history. He was diagnosed with CML in September of 2022. He has been taking Jakafi since May 2023. He reports no other medication or therapies other than Jakafi. He has been tolerating it well. He follows with Dr. Garcia at [facility]. He reports a history of anemia when his WBC go up his Hgb goes down. He has not been treated for anemia. He does not report any other cancer diagnoses. He reports no smoking or alcohol history. He reports shortness of breath. Denies any bleeding or bruising. States he has lost 20lbs since September. Labs are notable for Hgb 9.6, Hct 29, WBC 20.5, Plt 281,000. No blasts are noted on differential. Review of Systems - Review of Systems All systems reviewed & are unremarkable except as noted in HPI and bel - Neurologic Reports hearing normal, Denies abnormal speech [facility] Medical History: Medical History (Last Reviewed 08/26/23 @ 12:23 by Alexis Fuentes MD) Arthritis CML (chronic myelocytic leukemia) Essential hypertension Hyperlipidemia Hypothyroid Overweight Surgical History: Surgical History (Last Reviewed 08/26/23 @ 12:23 by Alexis Fuentes MD) H/O umbilical hernia repair Family History: Family History (Last Reviewed 08/26/23 @ 12:23 by Alexis Fuentes MD) Father Hiatal hernia Grandparent Malignant neoplasm of prostate Sibling Lung cancer Spina bifida - Social History Social History: Social History (Last Reviewed 08/26/23 @ 12:23 by Alexis Fuentes MD) Gender Identity: Gender identity (if verbalized by the patient): Male Alcohol Use: Alcohol intake: current Drinks per week: 10 Alcohol use details: States he drinks a few beers a day Substance Use: Substance use: never Substance use type: does not use Others: Spiritual care concerns: No Living Arrangements: Living arrangements: alone Oppucation/Education: Occupation/Education: retired Smoking Status: Smoking status: Never smoker Second hand tobacco smoke exposure: No Social Determinants of Health: Do You Feel Safe in your Home?: Yes Has the Lack of Transportation Kept You From Medical Appointments or From Getting Medications?: No Within the Past 12 Months, Were You Worried Whether Your Food Would Run Out Before You Got Money to Buy More?: Never True What is Your Housing Situation Today?: I Have Housing Are You Worried That in the Next 2 Months, You May Not Have Your Own Housing to Live In?: No Do You Have Trouble Paying Your Heating Or Electricity Bill?: No Do You Have Trouble Paying For Medicines?: No Are You Currently Unemployed and Looking for Work?: No Highest Level of Education Completed: High School Diploma/GED Do You Have Trouble With Childcare or the Care of a Family Member?: No Exam - General Pt appears to be in semi-distress. He is wearing BIPAP and his RR is 30-40RR/min - Vital Signs Vital Signs - 24 hr 08/26/23 03:53 08/26/23 04:04 08/26/23 04:05 Temperature 37.7 C H Pulse Rate 105 H 105 H Respiratory Rate 33 H Blood Pressure 141/50 H Pulse Oximetry 88 L Oxygen Delivery Non-Rebreather Mask BiPAP Oxygen Flow Rate 15 08/26/23 04:16 08/26/23 04:19 08/26/23 04:19 Temperature Pulse Rate 87 87 88 Respiratory Rate 27 H 30 H 28 H Blood Pressure 125/52 L Pulse Oximetry 100 100 Oxygen Delivery BiPAP Oxygen Flow Rate 08/26/23 04:18 08/26/23 04:30 08/26/23 04:31 Temperature Pulse Rate 87 91 92 Respiratory Rate 27 H 39 H 37 H Blood Pressure 105/58 L Pulse Oximetry 100 96 100 Oxygen Delivery
[2023-08-26] MEDS: FUROSEMIDE INJ 40 MG/4 ML VIAL 20 MG IV PUSH (18:07)
[2023-08-26 20:04] LABS: Partial Thromboplastin Time 80.2 SECONDS (22.3-36.8)
[2023-08-26] MEDS: FAMOTIDINE 20 MG TABLET PO (21:33)
[2023-08-26] MEDS: guaiFENesin 12 HR 600 MG TABCR PO (21:33)
[2023-08-27] VITALS (31 sets, daily range): BP systolic 97–117; BP diastolic 42–94; PULSE 89–117; RESP 24–37; TEMP 36.4–37; O2SAT 85–98
[2023-08-27 01:34] LABS: Appearance Urine Cloudy (Clear); Bacteria Urine None Seen /hpf; Bilirubin Urine Negative (Negative); Blood Urine Trace (Negative); Color Urine Yellow (Yellow); Glucose Urine UA Negative (Negative); Ketones Urine Negative (Negative); Leukocyte Esterase Ur Negative LEU/UL (Negative); Need Manual Microscopic Reviewed; Nitrate Urine Negative (Negative); Protein Urine Trace mg/dL (Negative); RBC Urine 0-2 /hpf (0-2); Specific Grav Ur 1.017 (1.001-1.035); Squamous Epithelial Cell Urine None seen /hpf (Few); Urobilinogen Urine 0.2 mg/dL (<2.0); WBC Urine 0-5 /hpf
[2023-08-27 01:35] LABS: Add Urine Microscopic? YES
[2023-08-27] MEDS: IPRATROPIUM BR 0.02% INH SOLN 0.5 MG/2.5 ML VIAL INHALATION ×2 (02:04→07:00)
[2023-08-27] MEDS: IPRATROPIUM 0.5 MG/ALBUTEROL SULFATE 2.5 MG AMPUL.NEB 3 ML INHALATION ×4 (02:04→20:05)
[2023-08-27 02:08] LABS: Hematocrit 25.4 % (42.0-52.0); Hemoglobin 7.8 g/dL (14.0-18.0); Mean Corpuscular HGB Conc 30.7 g/dl (32-36); Mean Corpuscular Hemoglobin 29.3 pg (26-34); Mean Corpuscular Volume 95.5 fl (80-100); Mean Platelet Volume 12.1 fl (7.4-10.4); Platelet Count Result 214 k/mm3 (150-375); Red Blood Count 2.66 M/mm3 (4.6-6.20); Red Cell Distribution Width 24.1 % (11.5-14.5); White Blood Count 25.2 K/mm3 (4.5-10.0)
[2023-08-27 02:17] LABS: Estimated CRCL calculation 35 ml/min; Estimated Glomerular Filt Rate 46
[2023-08-27 02:22] LABS: Partial Thromboplastin Time 115.1 SECONDS (22.3-36.8)
[2023-08-27 02:36] LABS: Band Neutrophils Percent 11 % (0-6); Monocytes Absolute Manual 4.53 K/mm3 (0.1-0.90); Monocytes Percent Manual 18 % (3-9); Neutrophils Absolute Manual 19.65 K/mm3 (1.3-6.7); Neutrophils Percent Manual 67 % (46-73); Platelet Estimate Adequate (Adequate); Total Cells Counted 100
[2023-08-27 02:39] LABS: Anisocytosis 1+ (NORMAL); Large Platelets Present; Ovalocytes 1+ (NORMAL); Schistocytes Rare (NORMAL)
[2023-08-27 03:00] LABS: Alanine Aminotransferase 29 U/L (6-50); Albumin Level 3.7 g/dL (3.5-5.1); Alkaline Phosphatase 180 U/L (38-126); Anion Gap 12 mmol/L (8-16); Aspartate Amino Transferase 67 U/L (17-59); Bilirubin,Total 1.6 mg/dL (0.2-1.3); Blood Urea Nitrogen 32 mg/dL (9-20); Calcium 8.5 mg/dL (8.4-10.2); Carbon Dioxide 18 mmol/L (22-30); Chloride 108 mmol/L (98-107); Estimated CRCL calculation 35 ml/min; Estimated Glomerular Filt Rate 46; Glucose 159 mg/dL (65-110); Potassium 3.7 mmol/L (3.4-5.0); Sodium 138 mmol/L (137-145)
[2023-08-27] MEDS: AZITHROMYCIN 500 MG/NS 250 ML 500 MG/250 ML BAG 250 MG IVPB (05:33)
[2023-08-27] MEDS: NITROGLYCERIN OINTMENT 1 INCH DOSE TRANSDERM ×4 (05:43→23:17)
[2023-08-27] MEDS: LEVOTHYROXINE SODIUM 112 MCG TABLET PO (05:49)
[2023-08-27 05:53] LABS: Alveolar/Arterial O2 Gradient 329.5 mmHg; Fractional Inspired Oxygen 60 %; HCO3 ABG 19.9 mEq/l (22.0-26.0); Oxygen Content ABG 11.1 %vol (16.0-22.0); PCO2 ABG 40.9 mmHg (35.0-45.0); PO2 ABG 53.3 mmHg (80.0-100.0); PO2 FiO2 Ratio Arterial Blood 0.89 %; Total Hemoglobin 9.5 g/dL (12.0-18.0); pH ABG 7.305 (7.350-7.450)
[2023-08-27 05:54] LABS: Oxygen Saturation ABG 84.6 % (95.0-100.0)
[2023-08-27 05:55] LABS: Oxyhemoglobin 82.5 % THb (90.0-100.0)
[2023-08-27 05:56] LABS: Device NON-INVASIVE VENT; Site Drawn RIGHT BRACHIAL
[2023-08-27 05:57] LABS: Non-Invasive Vent Rate 26 /MIN
[2023-08-27 05:59] LABS: Non-Invasive Expiratory Pressure 5 CMH2O
--- NOTE | 2023-08-27 06:21 | PC.NURSE ---
Patient tolerated bipap well overnight. Patient kept it in place well. It was removed only once for a moment to take HS pills. After ABG's drawn, it was removed again momentarily for a pill, a drink, mouth swab, and lip protector.
--- NOTE | 2023-08-27 06:24 | PC.NURSE ---
no stools over night.
[2023-08-27] MEDS: FUROSEMIDE INJ 40 MG/4 ML VIAL 20 MG IV PUSH ×2 (08:11→10:44)
--- NOTE | 2023-08-27 08:37 | PM.PNPUL ---
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 He has an elevated BNP, positive troponins, CT angiogram that shows no PE, diffuse interstitial alveolar infiltrates consistent with congestion cannot rule out pneumonia. Patient feels better than he was 12 hours ago after diuresis and ceftriaxone and azithromycin x1 dose which has been switched to vancomycin and cefepime. currently the patient states he is improved. Etiology of patient's hypoxemic respiratory failure include fluid overload, pneumonia (bacterial and viral), doubt PE, sepsis, pulmonary leukostasis or drug reaction to Jakafi. Plan: agree with as aggressive diuresis as tolerated by his cardiac and renal systems per Cardiology, Renal and hospitalist. Echocardiogram is pending. He is scheduled get Lasix 40 later tonight. Agree with broad-spectrum antibiotics as he is recently been in the hospital in April of 2023 and has been immunosuppressed with his cancer and his medication. Continue vancomycin, cefepime and azithromycin. Cultures are pending. Respiratory pathogen panel pending. I will send a repeat COVID, influenza and RSV swab in 48 hours. Discuss Jakafi discontinuation syndrome with Oncology. When I enter the room the patient was in respiratory distress on BiPAP breathing 42 times a minute and said that the mask was very uncomfortable and it was hard for him to breathe. He was on 80% with saturations 97%. I changed him to a noninvasive ventilator mode with the AVAPS mode and adjusted settings to comfort resulting in a rate of 26, tidal volume of 550, EPAP 5, minimal inspiratory pressure 6, maximal inspiratory pressure 25, inspiratory time 0.8, rise of 1 which is are fastest and 70% FiO2 with saturations 96%. I will check an ABG in the morning. Patient is DNR and he confimred this with me. 3/5 Continuous noninvasive ventilatory support and has worsening hypoxemic respiratory failure now requiring 100% FiO2. His blood gas this morning on noninvasive ventilation with the AVAPS mode with the settings above was 7.31/41/53. He desaturated after this and required 80 and then 100% currently. His white blood cell count is 25.2. His creatinine is 1.5. His PTT is 115. He has diuresed 1.7 L since admission and his chest x-ray shows mild improvement of interstitial alveolar infiltrates in the right upper lobe. he is communicative and tells me he is breathing a little better than he was yesterday, he follows simple commands with his upper and lower extremities. Plan: patient continues to deteriorate despite broad-spectrum antibiotics with vancomycin, cefepime and azithromycin (all day 2) and Lasix for diuresis with a net diuresis of 1.7 L since admission. Continue current antibiotics. Echocardiogram with left ventricular hypertrophy and normal LV size and well preserved systolic function, grade 2 diastolic dysfunction, normal right ventricle. Normal right atrium. Moderately enlarged left atrium. RVSP listed as 42. Given patient's deterioration will repeat testing for COVID, RSV, influenza. since the patient has CML treated with Jakafi (now held), I willl empirically treat for PJP and will place him on Septra with 15 milligrams/kilos trimethoprim and Solu-Medrol 40 IV q.12 hours. First dose of Solu-Medrol prior to Septra. Given additional IV fluid with Septra will likely require additional Lasix. Agree with continued aggressive diuresis as tolerated by his cardiac and renal systems. Patient has a metabolic acidosis with a serum bicarbonate of 18 and blood gas of 7.31/41/53. currently is minute ventilation is high on the noninvasive ventilation and I do not think he would benefit from a hi
[2023-08-27 08:54] LABS: Iron 48 ug/dL (49-181)
[2023-08-27] MEDS: methylPREDNISolone SOD SUCC 40 MG VIAL IV PUSH ×2 (09:05→21:07)
[2023-08-27] MEDS: CEFEPIME 1 GM/NS 50 ML 1 GM/50 ML BAG IVPB (09:05)
[2023-08-27 09:06] LABS: Percent Iron Saturation 26 % (20-50)
--- NOTE | 2023-08-27 09:07 | PM.PNCARD ---
Progress Note: A&P Assessment and Plan (1) Elevated troponin: Code(s): R79.89 - Other specified abnormal findings of blood chemistry Status: Acute Assessment and Plan: Patient has elevated troponins that are concerning for ACS.? His clinical syndrome of acute shortness of breath may be his anginal equivalent.? He has been having some exertional chest pain as of late also.? CT does not show any pulmonary embolism.?2D echocardiogram Doppler with preserved LVEF, no significant valvular disease. Patient is a DNR but he is willing to hold his DNR status for cardiac workup if need be. Patient is agreeable to cardiac catheterization. He was tentatively scheduled for cardiac cath today, however, not appropriate at this time given worsening respiratory status with increased respiratory rate on BIPAP, Hgb dropping to 7.8. Will need improvement in respiratory status prior to technology lab teacher as he will need to lay flat. Will also need to ensure his Hgb levels remain stable prior to cath. In the meantime, continue Heparin drip for total of 48 hours, ASA, statin. (2) Acute hypoxic respiratory failure: Code(s): J96.01 - Acute respiratory failure with hypoxia Status: Acute Assessment and Plan: Pulmonary consulted as well. Echocardiogram showed preserved LVEF 60-65%, grade 2 diastolic dysfunction, dilated left atrium, no significant valvular disease. I am going to increase his Lasix to 40mg BID. Please monitor strict I/Os. (3) Elevated serum creatinine: Code(s): R79.89 - Other specified abnormal findings of blood chemistry Status: Acute Assessment and Plan: Follow renal function closely (4) Hyperlipidemia: Code(s): E78.5 - Hyperlipidemia, unspecified Status: Acute Assessment and Plan: Continue statin (5) Essential hypertension: Code(s): I10 - Essential (primary) hypertension Status: Acute Assessment and Plan: At goal (6) 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ieved remission Status: Acute Assessment and Plan: Follows with Oncology at [facility]. Oncology here consulted as well. Subjective Date/time seen: 08/27/23 09:07 Interval history: Reason for visit: NSTEMI HPI: Patient is a 78-year-old male who has a history of leukemia, history of COVID, hypertension, hyperlipidemia who presented to the hospital with acute onset of shortness of breath.? Patient has been intermittently short of breath for the past week or so.? He received antibiotic which seemed to help initially but last night he became acutely short of breath.? CT scan was performed showing diffuse lung disease consider edema but no pulmonary embolism.? Troponins are elevated and rising.? Cardiology consultation was therefore initiated.? Upon further questioning, he admits to some anterior chest pain intermittently for the past couple of weeks.? It was exertional and improved with rest.? He denies any syncope, presyncope, paroxysmal nocturnal dyspnea or orthopnea or edema. Date of service 08/26: Patient's respiratory status is worsening. Now requiring continuous BIPAP otherwise he has significant desaturations. Saw by Dr. Alejandro this morning - ordered for repeat COVID, RSV, Influenza testing, being empirically treated for PJP. In addition, Hgb has decreased to 7.8 this morning. Patient denies any active chest pain this morning. Review of Systems Review of Systems: All systems reviewed & are unremarkable except as noted in HPI and below (HPI) Exam Const: General: no acute distress Other: Ill appearing male on BIPAP Resp: Other: Increased respiratory rate. On BIPAP. Decreased breath sounds. Cardio: Rate: regular rate Rhythm: regular rhythm Skin: General skin exam: normal color Psych: Mental Status: mental status grossly normal Affect: normal affect Objective Data Vital Signs Vital Signs:
--- NOTE | 2023-08-27 09:25 | PCOTNOTE ---
Attempted to see pt. for occupational therapy evaluation. Pt. is currently not medically appropriate for therapy services. In agreement with hospitalist, John Veronica, for cancelation of orders at this time. Nursing aware.
[2023-08-27 09:27] LABS: Lactate Dehydrogenase 371 U/L (120-246)
--- NOTE | 2023-08-27 09:29 | PCPTNOTE ---
Attempted PT evaluation. PER OT: Pt. is currently not medically appropriate for therapy services. In agreement with hospitalist, Dr. Morales, for cancelation of orders at this time. Nursing aware.
[2023-08-27 09:43] LABS: Partial Thromboplastin Time 91.3 SECONDS (22.3-36.8)
[2023-08-27 10:04] LABS: Folic Acid 8.7 ng/mL (2.76->20)
--- NOTE | 2023-08-27 10:06 | PM.IMPN ---
Progress Note: A&P Assessment and Plan (1) Pneumonia: Code(s): J18.9 - Pneumonia, unspecified organism Status: Acute Assessment and Plan: Broad-spectrum IV antibiotic including antifungal follow-up culture results discussed with pulmonology associated with acute hypoxemic respiratory failure Follow sputum culture blood culture reviewed CT scan of the chest Pulmonary was consulted (2) Acute hypoxic respiratory failure: Code(s): J96.01 - Acute respiratory failure with hypoxia Status: Acute Assessment and Plan: Probably multifactorial related to pulmonary edema and pneumonia Continue IV antibiotic nebulizer treatment IV diuretics cardiology following Patient currently on BiPAP pulmonology was consulted (3) Hyperlipidemia: Code(s): E78.5 - Hyperlipidemia, unspecified Status: Acute Assessment and Plan: Resume home medication (4) 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 Patient has worsening anemia if continued to worsen Heme-Onc recommendation appreciated (5) Essential hypertension: Code(s): I10 - Essential (primary) hypertension Status: Acute Assessment and Plan: Hold amlodipine to allow diuresis (6) Pulmonary edema: Code(s): J81.1 - Chronic pulmonary edema Status: Acute Assessment and Plan: Probable acute and of chronic diastolic CHF exacerbation repeat echo follow serial troponin cardiology was consulted continue gentle diuresis (7) Elevated serum creatinine: Code(s): R79.89 - Other specified abnormal findings of blood chemistry Status: Acute Assessment and Plan: Monitor closely patient has IV contrast benefit outweighed the risk patient has pulmonary edema gentle diuresis as also patient is on BiPAP (8) Elevated troponin: Code(s): R79.89 - Other specified abnormal findings of blood chemistry Status: Acute Assessment and Plan: Elevated troponin probably related to demand ischemia follow serial troponin repeat ECG continue tele monitor patient denies any active chest pain Cardiology was consulted Plan Prognosis poor to guarded Subjective Date/time seen: 08/27/23 10:06 Interval history: Reason for visit: NSTEMI HPI: Patient is a 78-year-old male who has a history of leukemia, history of COVID, hypertension, hyperlipidemia who presented to the hospital with acute onset of shortness of breath.? Patient has been intermittently short of breath for the past week or so.? He received antibiotic which seemed to help initially but last night he became acutely short of breath.? CT scan was performed showing diffuse lung disease consider edema but no pulmonary embolism.? Troponins are elevated and rising.? Cardiology consultation was therefore initiated.? Upon further questioning, he admits to some anterior chest pain intermittently for the past couple of weeks.? It was exertional and improved with rest.? He denies any syncope, presyncope, paroxysmal nocturnal dyspnea or orthopnea or edema. Patient was found to have pulmonary edema and pneumonia elevated troponin cardiology was consulted patient also has acute hypoxemic respiratory failure required BiPAP Heme-Onc was consulted as patient has myelofibrosis with worsening anemia patient condition continued to worsen today I discussed with the [id number] patient and power of trust and estates attorney does not want resuscitation or intubation discussed with pulmonology Continue IV M antibiotic continue diuresis Antibiotic was adjusted Added micafungin for fungal infection as patient is immunocompromised Patient on BiPAP Exam Narrative: GENERAL: Sick appearing on BiPAP HEAD: Normocephalic, atraumatic. N
[2023-08-27 10:09] LABS: Influenza A QL RT-PCR Negative (Negative); Influenza B QL RT-PCR Negative (Negative); RSV RNA, RT-PCR Negative (Negative); SARS-CoV-2 RNA PCR Negative (Negative)
[2023-08-27 10:44] LABS: MRSA (PCR) NOT DETECTED (NOT DETECTE)
[2023-08-27] MEDS: MICAFUNGIN SODIUM 100 MG in SODIUM CHLORIDE 0.9% IV 100 ML IVPB (10:45)
[2023-08-27 10:55] LABS: Hematocrit 25.9 % (42.0-52.0)
[2023-08-27 11:07] LABS: Ammonia < 9 umol/L (9-30)
--- NOTE | 2023-08-27 12:51 | WPDGICN ---
Assessment and Plan Assessment and plan (1) Anemia: Code(s): D64.9 - Anemia, unspecified <WILLIAM Camacho - Last Filed: 08/27/23 13:30> Status: Acute <WILLIAM Camacho - Last Filed: 08/27/23 13:30> Assessment and Plan: His Hgb and hct 07/01/2023 wnls at 15.1 and 46.4. H&H on admission 9.6/29.9 with repeat labs trending downwards at 8/25.9. Iron slightly low at 48 with elevated ferritin at 767. Iron saturation normal. TIBC low at 184. Pattern more consistent with anemia chronic disease. - But due to worsening drop in hemoglobin and on heparin drip, GI blood loss could be excluded. - No overt GI blood work loss at this time. - Due to worsening respiratory failure and needing cardiac catheterization will defer scopes at this time. - Monitor H&H and transfuse as needed - will start him on pantoprazole 40 mg IV prophylactically - hospitalist team ordered occult stool, but this has not been collected yet. - Consider D/C of heparin drip per cardiology if concerning or obvious GI blood loss is noted <WILLIAM Camacho - Last Filed: 08/27/23 13:30> His Hgb and hct 07/01/2023 wnls at 15.1 and 46.4. H&H on admission 9.6/29.9 with repeat labs trending downwards at 8/25.9. Iron slightly low at 48 with elevated ferritin at 767. Iron saturation normal. TIBC low at 184. Pattern more consistent with anemia chronic disease, also CML on treatment and cirrhosis. - No overt GI blood work loss at this time. - Due to worsening respiratory failure and needing cardiac catheterization will defer scopes at this time. - Monitor H&H and transfuse as needed - will start him on pantoprazole 40 mg IV prophylactically - hospitalist team ordered occult stool, but this has not been collected yet. <Gunner Ty MD - Last Filed: 08/27/23 19:22> (2) Cirrhosis: Code(s): K74.60 - Unspecified cirrhosis of liver <WILLIAM Camacho - Last Filed: 08/27/23 13:30> Status: Acute <Terrie Deniz WILLIAM Root - Last Filed: 08/27/23 13:30> Assessment and Plan: -cirrhosis of liver noted on CTA imaging. No hx of Alcohol use -can consider liver work/up for this. <WILLIAM Camacho - Last Filed: 08/27/23 13:30> -cirrhosis of liver noted on CTA imaging. No hx of Alcohol use -we can obtain blood work for other chronic liver conditions <Gunner Ty MD - Last Filed: 08/27/23 19:22> (3) Elevated LFTs: Code(s): R79.89 - Other specified abnormal findings of blood chemistry <WILLIAM Camacho - Last Filed: 08/27/23 13:30> Status: Acute <WILLIAM Camacho - Last Filed: 08/27/23 13:30> (4) Pneumonia: Code(s): J18.9 - Pneumonia, unspecified organism <WILLIAM Camacho - Last Filed: 08/27/23 13:30> Status: Acute <WILLIAM Camacho - Last Filed: 08/27/23 13:30> Assessment and Plan: Pneumonia versus pulmonary edema will give empiric IV antibiotics Follow sputum culture blood culture reviewed CT scan of the chest Pulmonary was consulted <WILLIAM Camacho - Last Filed: 08/27/23 13:30> (5) Acute hypoxic respiratory failure: Code(s): J96.01 - Acute respiratory failure with hypoxia <WILLIAM Camacho - Last Filed: 08/27/23 13:30> Status: Acute <WILLIAM Camacho - Last Filed: 08/27/23 13:30> Assessment and Plan: Probably multifactorial related to pulmonary edema and less likely pneumonia Continue IV antibiotic nebulizer treatment Patient currently on BiPAP pulmonology was consulted <WILLIAM Camacho - Last Filed: 08/27/23 13:30> (6) Hyperlipidemia: Code(s): E78.5 - Hyperlipidemia, unspecified <WILLIAM Camacho - Last Filed: 08/27/23 13:30> Status: Acute <WILLIAM Camacho - Last Filed: 08/27/23 13:30> (7) 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
--- NOTE | 2023-08-27 12:59 | PC.NURSE ---
Spoke with Dr. Shah, holding blood since repeat hgb was 8.0, calling cardiology to discuss heparin drip since the concern is a bleed.
--- NOTE | 2023-08-27 13:03 | PC.NURSE ---
Spoke with Dr. Middleton, she is fine with stopping the heparin drip
--- NOTE | 2023-08-27 13:30 | PCSTNOTE ---
Bedside Swallow Evaluation order is being discontinued as currently patient has respiratory issues and cannot participate in direct swallow evaluation. Physician may re-order when appropriate.
[2023-08-27] MEDS: FUROSEMIDE INJ 40 MG/4 ML VIAL IV PUSH (18:52)
[2023-08-27] MEDS: guaiFENesin 12 HR 600 MG TABCR PO (21:07)
[2023-08-27] MEDS: PANTOPRAZOLE SODIUM IV 40 MG VIAL IV PUSH (21:07)
[2023-08-27] MEDS: FAMOTIDINE 20 MG TABLET PO (21:08)
[2023-08-27] MEDS: VANCOMYCIN 1,250 MG/NS 250 ML 1,250 MG/250 ML BAG 166.67 MG IVPB (23:17)
[2023-08-28] VITALS (25 sets, daily range): BP systolic 84–110; BP diastolic 42–48; PULSE 70–101; RESP 27–40; TEMP 36–36.5; O2SAT 87–99
[2023-08-28] MEDS: IPRATROPIUM 0.5 MG/ALBUTEROL SULFATE 2.5 MG AMPUL.NEB 3 ML INHALATION ×4 (02:16→20:07)
[2023-08-28 04:59] LABS: Hematocrit 25.6 % (42.0-52.0); Hemoglobin 7.7 g/dL (14.0-18.0); Immature Platelet Fraction Pct 24.2 % (0.9-11.2); Mean Corpuscular HGB Conc 30.1 g/dl (32-36); Mean Corpuscular Hemoglobin 29.6 pg (26-34); Mean Corpuscular Volume 98.5 fl (80-100); Platelet Count Result 243 k/mm3 (150-375); White Blood Count 32.2 K/mm3 (4.5-10.0)
[2023-08-28 05:13] LABS: Iron 49 ug/dL (49-181)
[2023-08-28 05:20] LABS: Alanine Aminotransferase 23 U/L (6-50); Albumin Level 3.7 g/dL (3.5-5.1); Alkaline Phosphatase 155 U/L (38-126); Anion Gap 12 mmol/L (8-16); Aspartate Amino Transferase 39 U/L (17-59); Bilirubin,Total 1.6 mg/dL (0.2-1.3); Blood Urea Nitrogen 53 mg/dL (9-20); Carbon Dioxide 21 mmol/L (22-30); Chloride 106 mmol/L (98-107); Estimated CRCL calculation 28 ml/min; Estimated Glomerular Filt Rate 35; Glucose 193 mg/dL (65-110); Potassium 3.4 mmol/L (3.4-5.0); Sodium 139 mmol/L (137-145)
[2023-08-28 05:22] LABS: Percent Iron Saturation 29 % (20-50)
[2023-08-28 05:42] LABS: Hepatitis B Surface Antigen Negative (Negative)
[2023-08-28 05:48] LABS: HAV RESULT Negative (Negative); Hepatitis B Core IgM Result Negative (Negative)
[2023-08-28 05:59] LABS: Hepatitis C Virus Antibody Negative (Negative)
[2023-08-28 06:04] LABS: Band Neutrophils Percent 5 % (0-6); Neutrophils Absolute Manual 27.69 K/mm3 (1.3-6.7); Neutrophils Percent Manual 81 % (46-73); Total Cells Counted 100
[2023-08-28 06:05] LABS: Lymphocytes Absolute Manual 3.86 K/mm3 (1.1-4.5); Lymphocytes Percent Manual 12 % (18-44); Monocytes Absolute Manual 0.64 K/mm3 (0.1-0.90); Monocytes Percent Manual 2 % (3-9)
[2023-08-28 06:06] LABS: Anisocytosis 1+ (NORMAL); Hypochromasia 1+ (NORMAL); Large Platelets Present; Ovalocytes 1+ (NORMAL); Platelet Estimate Adequate (Adequate); Schistocytes None Seen (NORMAL)
[2023-08-28] MEDS: NITROGLYCERIN OINTMENT 1 INCH DOSE TRANSDERM (06:16)
[2023-08-28] MEDS: AZITHROMYCIN 500 MG/NS 250 ML 500 MG/250 ML BAG 250 MG IVPB (06:17)
--- NOTE | 2023-08-28 07:35 | PC.NURSE ---
0726-pt 02 saturation at 85% called Dr. Alejandro, stated he would come to see patient. Fi02 is already set at 100%.
--- NOTE | 2023-08-28 07:37 | PC.NURSE ---
0734-Called daughter in [place] to update with patient's condition.
--- NOTE | 2023-08-28 08:11 | PC.NURSE ---
Called Dr. Jovel and patient's POASkye, and updated on patient's condition.
--- NOTE | 2023-08-28 08:35 | P.PNPL_ITS ---
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 He has an elevated BNP, positive troponins, CT angiogram that shows no PE, diffuse interstitial alveolar infiltrates consistent with congestion cannot rule out pneumonia. Patient feels better than he was 12 hours ago after diuresis and ceftriaxone and azithromycin x1 dose which has been switched to vancomycin and cefepime. currently the patient states he is improved. Etiology of patient's hypoxemic respiratory failure include fluid overload, pneumonia (bacterial and viral), doubt PE, sepsis, pulmonary leukostasis or drug reaction to Jakafi. Plan: agree with as aggressive diuresis as tolerated by his cardiac and renal systems per Cardiology, Renal and hospitalist. Echocardiogram is pending. He is scheduled get Lasix 40 later tonight. Agree with broad-spectrum antibiotics as he is recently been in the hospital in April of 2023 and has been immunosuppressed with his cancer and his medication. Continue vancomycin, cefepime and azithromycin. Cultures are pending. Respiratory pathogen panel pending. I will send a repeat COVID, influenza and RSV swab in 48 hours. Discuss Jakafi discontinuation syndrome with Oncology. When I enter the room the patient was in respiratory distress on BiPAP breathing 42 times a minute and said that the mask was very uncomfortable and it was hard for him to breathe. He was on 80% with saturations 97%. I changed him to a noninvasive ventilator mode with the AVAPS mode and adjusted settings to comfort resulting in a rate of 26, tidal volume of 550, EPAP 5, minimal inspiratory pressure 6, maximal inspiratory pressure 25, inspiratory time 0.8, rise of 1 which is are fastest and 70% FiO2 with saturations 96%. I will check an ABG in the morning. Patient is DNR and he confimred this with me. 3/5 Continuous noninvasive ventilatory support and has worsening hypoxemic respiratory failure now requiring 100% FiO2. His blood gas this morning on noninvasive ventilation with the AVAPS mode with the settings above was 7.31/41/53. He desaturated after this and required 80 and then 100% currently. His white blood cell count is 25.2. His creatinine is 1.5. His PTT is 115. He has diuresed 1.7 L since admission and his chest x-ray shows mild improvement of interstitial alveolar infiltrates in the right upper lobe. he is communicative and tells me he is breathing a little better than he was yesterday, he follows simple commands with his upper and lower extremities. Plan: patient continues to deteriorate despite broad-spectrum antibiotics with vancomycin, cefepime and azithromycin (all day 2) and Lasix for diuresis with a net diuresis of 1.7 L since admission. Continue current antibiotics. Echocar diogram with left ventricular hypertrophy and normal LV size and well preserved systolic function, grade 2 diastolic dysfunction, normal right ventricle. Normal right atrium. Moderately enlarged left atrium. RVSP listed as 42. Given patient's deterioration will repeat testing for COVID, RSV, influenza. since the patient has CML treated with Jakafi (now held), I willl empirically treat for PJP and will place him on Septra with 15 milligrams/kilos trimethoprim and Solu-Medrol 40 IV q.12 hours. First dose of Solu-Medrol prior to Septra. Given additional IV fluid with Septra will likely require additional Lasix. Agree with continued aggressive diuresis as tolerated by his cardiac and renal
[2023-08-28] MEDS: PANTOPRAZOLE SODIUM IV 40 MG VIAL IV PUSH ×2 (09:12→21:00)
[2023-08-28] MEDS: methylPREDNISolone SOD SUCC 40 MG VIAL IV PUSH ×2 (09:12→21:00)
--- NOTE | 2023-08-28 09:31 | PC.NURSE ---
Dr. Middleton at bedside orders to hold IV lasix, pt has decreased BP 88/42
[2023-08-28 09:53] LABS: Hematocrit 26.1 % (42.0-52.0); Hemoglobin 7.9 g/dL (14.0-18.0)
--- NOTE | 2023-08-28 10:39 | PM.PNCARD ---
Progress Note: A&P Assessment and Plan (1) Elevated troponin: Code(s): R79.89 - Other specified abnormal findings of blood chemistry Status: Acute Assessment and Plan: Patient has elevated troponins that are concerning for ACS.? His clinical syndrome of acute shortness of breath may be his anginal equivalent.? He has been having some exertional chest pain as of late also.? CT does not show any pulmonary embolism.?2D echocardiogram Doppler with preserved LVEF, no significant valvular disease. Patient is a DNR but he is willing to hold his DNR status for cardiac workup if need be. Patient is agreeable to cardiac catheterization. He was tentatively scheduled for cardiac cath 08/27, however, not appropriate at this time given worsening respiratory status with increased respiratory rate on BIPAP, Hgb dropping to the 7s. 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 Will also need to ensure his Hgb levels remain stable prior to cath. Heparin drip had to be discontinued due to his significant anemia. In the meantime, continue ASA, statin. (2) Acute hypoxic respiratory failure: Code(s): J96.01 - Acute respiratory failure with hypoxia Status: Acute Assessment and Plan: Echocardiogram showed preserved LVEF 60-65%, grade 2 diastolic dysfunction, dilated left atrium, no significant valvular disease. CXR this morning still with diffuse airspace consolidation. Correlate for advanced pulmonary edema versus diffuse pneumonia. We were diuresing him with IV Lasix with net negative 1,361cc this admission, however, his SCr worsened overnight with increased dose of Lasix and he is hypotensive this morning, therefore, will hold off on diuresis at this time. Being empirically treated for PNA, including PJP, however, not improving. (3) Elevated serum creatinine: Code(s): R79.89 - Other specified abnormal findings of blood chemistry Status: Acute Assessment and Plan: SCr worsening. Hold Lasix. Follow renal function closely (4) Hyperlipidemia: Code(s): E78.5 - Hyperlipidemia, unspecified Status: Acute Assessment and Plan: Continue statin (5) Essential hypertension: Code(s): I10 - Essential (primary) hypertension Status: Acute Assessment and Plan: Hypotensive currently. Hold off on Lasix. (6) 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ieved remission Status: Acute Assessment and Plan: Follows with Oncology at [facility]. Oncology here consulted as well. Plan Prognosis is poor. Subjective Date/time seen: 08/28/23 10:39 Interval history: Reason for visit: NSTEMI HPI: Patient is a 78-year-old male who has a history of leukemia, history of COVID, hypertension, hyperlipidemia who presented to the hospital with acute onset of shortness of breath.? Patient has been intermittently short of breath for the past week or so.? He received antibiotic which seemed to help initially but last night he became acutely short of breath.? CT scan was performed showing diffuse lung disease consider edema but no pulmonary embolism.? Troponins are elevated and rising.? Cardiology consultation was therefore initiated.? Upon further questioning, he admits to some anterior chest pain intermittently for the past couple of weeks.? It was exertional and improved with rest.? He denies any syncope, presyncope, paroxysmal nocturnal dyspnea or orthopnea or edema. Date of service 08/26: Patient's respiratory status is worsening. Now requiring continuous BIPAP otherwise he has significant desaturations. Saw by Dr. Alejandro this morning - ordered for repeat COVID, RSV, Influenza testing, being empirically treated for PJP. In addition, Hgb has decreased to 7.8 this morning. Patient denies any active chest pain this morning. Date of service 08/27: Patient continues to deteriorate.
[2023-08-28] MEDS: MICAFUNGIN SODIUM 100 MG in SODIUM CHLORIDE 0.9% IV 100 ML IVPB (11:15)
--- NOTE | 2023-08-28 12:21 | PC.NURSE ---
Spoke with baldev Estrada to discontinue nitro paste
[2023-08-28] MEDS: CEFEPIME 1 GM/NS 50 ML 1 GM/50 ML BAG IVPB (12:26)
--- NOTE | 2023-08-28 16:03 | PM.IMPN ---
Progress Note: A&P Assessment and Plan (1) Pneumonia: Code(s): J18.9 - Pneumonia, unspecified organism Status: Acute Assessment and Plan: Broad-spectrum IV antibiotic including antifungal follow-up culture results discussed with pulmonology associated with acute hypoxemic respiratory failure Follow sputum culture blood culture reviewed CT scan of the chest Pulmonary was consulted (2) Acute hypoxic respiratory failure: Code(s): J96.01 - Acute respiratory failure with hypoxia Status: Acute Assessment and Plan: Probably multifactorial related to pulmonary edema and pneumonia Continue IV antibiotic nebulizer treatment IV diuretics cardiology following Patient currently on BiPAP pulmonology was consulted 08/28/23: Awaiting daughter and BiPAP may be discontinued (3) Hyperlipidemia: Code(s): E78.5 - Hyperlipidemia, unspecified Status: Acute Assessment and Plan: Resume home medication (4) 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 Patient has worsening anemia if continued to worsen Heme-Onc recommendation appreciated (5) Essential hypertension: Code(s): I10 - Essential (primary) hypertension Status: Acute Assessment and Plan: Hold amlodipine to allow diuresis (6) Pulmonary edema: Code(s): J81.1 - Chronic pulmonary edema Status: Acute Assessment and Plan: Probable acute and of chronic diastolic CHF exacerbation repeat echo follow serial troponin cardiology was consulted continue gentle diuresis (7) Elevated serum creatinine: Code(s): R79.89 - Other specified abnormal findings of blood chemistry Status: Acute Assessment and Plan: Monitor closely patient has IV contrast benefit outweighed the risk patient has pulmonary edema gentle diuresis as also patient is on BiPAP (8) Elevated troponin: Code(s): R79.89 - Other specified abnormal findings of blood chemistry Status: Acute Assessment and Plan: Elevated troponin probably related to demand ischemia follow serial troponin repeat ECG continue tele monitor patient denies any active chest pain Cardiology was consulted Plan Prognosis poor to guarded 08/28/23: Awaiting daughter who [place]. Time Spent With Patient Time with patient: 25 - 35 minutes Subjective Date/time seen: 08/28/23 16:03 Interval history: Reason for visit: NSTEMI HPI: Patient is a 78-year-old male who has a history of leukemia, history of COVID, hypertension, hyperlipidemia who presented to the hospital with acute onset of shortness of breath.? Patient has been intermittently short of breath for the past week or so.? He received antibiotic which seemed to help initially but last night he became acutely short of breath.? CT scan was performed showing diffuse lung disease consider edema but no pulmonary embolism.? Troponins are elevated and rising.? Cardiology consultation was therefore initiated.? Upon further questioning, he admits to some anterior chest pain intermittently for the past couple of weeks.? It was exertional and improved with rest.? He denies any syncope, presyncope, paroxysmal nocturnal dyspnea or orthopnea or edema. Patient was found to have pulmonary edema and pneumonia elevated troponin cardiology was consulted patient also has acute hypoxemic respiratory failure required BiPAP Heme-Onc was consulted as patient has myelofibrosis with worsening anemia patient condition continued to worsen today I discussed with the [id number] patient and power of contracts attorney does not want resuscitation or intubation discussed with pulmonology Continue IV M antibiotic continue diuresis Antibiotic was adjusted Added m
--- NOTE | 2023-08-28 16:43 | WPDGIPROGNO ---
Progress Note: A&P Assessment and Plan (1) Acute on chronic anemia: Code(s): D64.9 - Anemia, unspecified Status: Acute Assessment and Plan: this can be explain by cml/myelofibrosis and previous treatment regardless he is on respiratory distress and definitely high risk for anesthesia no scopes unless obvious gib which is not the case protonix iv will follow from [place] (2) 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ieved remission Status: Acute (3) Acute hypoxic respiratory failure: Code(s): J96.01 - Acute respiratory failure with hypoxia Status: Acute Assessment and Plan: on bipap (4) Cirrhosis: Code(s): K74.60 - Unspecified cirrhosis of liver Status: Acute Assessment and Plan: found during ct scan complete blood work for other chronic liver conditions (5) Pneumonia: Code(s): J18.9 - Pneumonia, unspecified organism Status: Acute Assessment and Plan: on rx (6) Pulmonary edema: Code(s): J81.1 - Chronic pulmonary edema Status: Acute Assessment and Plan: steroids, abx, bypap, oxygen by pulmonary (7) Elevated troponin: Code(s): R79.89 - Other specified abnormal findings of blood chemistry Status: Acute Assessment and Plan: cardiology on board Subjective Date/time seen: 08/28/23 16:43 Interval history: still with respiratory distress on bipap no signs of obvious gib heparin gtt discontinued Review of Systems Review of Systems: All systems reviewed & are unremarkable except as noted in HPI and below Exam Const: General: in distress Other: Ill appearing male on BIPAP HENMT: Face/Nose/Sinus: Normal nares present Eyes: Sclera: sclerae normal Neck: Neck: supple Resp: Auscultation: rhonchi and diminished lung sounds Other: Increased respiratory rate. On BIPAP. Decreased breath sounds. Cardio: Rate: regular rate Rhythm: regular rhythm GI: GI Palp: Yes Soft to palpation and No Tenderness to palpation present (GI) Auscultation: normal bowel sounds Skin: General skin exam: normal color Neuro: Other: Appears lethargic Psych: Other: Appears lethargic Objective Data Vital Signs Vital Signs: Vital Signs - 24 hr 08/27/23 18:00 08/27/23 19:55 08/27/23 20:05 Temperature 97.5 F L Pulse Rate 94 97 92 Respiratory Rate 24 H 32 H Blood Pressure 112/49 L Pulse Oximetry 97 98 Oxygen Delivery BiPAP Fraction of Inspired Oxygen 08/27/23 20:05 08/27/23 20:05 08/27/23 20:18 Temperature Pulse Rate 92 92 103 H Respiratory Rate 32 H 32 H 31 H Blood Pressure Pulse Oximetry 98 Oxygen Delivery BiPAP Fraction of Inspired Oxygen 90 08/27/23 20:00 08/27/23 20:00 08/27/23 21:59 Temperature Pulse Rate 93 93 94 Respiratory Rate 31 H Blood Pressure Pulse Oximetry 94 Oxygen Delivery BiPAP Fraction of Inspired Oxygen 08/27/23 23:27 08/28/23 00:00 08/28/23 00:00 Temperature 97.5 F L Pulse Rate 95 94 94 Respiratory Rate 34 H 34 H Blood Pressure 109/45 L Pulse Oximetry 93 93 Oxygen Delivery BiPAP Fraction of Inspired Oxygen 08/28/23 02:00 08/28/23 02:16 08/28/23 02:16 Temperature Pulse Rate 96 95 95 Respiratory Rate 29 H 29 H Blood Pressure Pulse Oximetry 88 L Oxygen Delivery BiPAP Fraction of Inspired Oxygen 08/27/23 22:25 08/28/23 02:26 08/28/23 03:38 Temperature 97.5 F L Pulse Rate 95 101 H 96 Respiratory Rate 29 H 30 H 34 H Blood Pressure 110/46 L Pulse Oximetry 96 91 Oxygen Delivery BiPAP Fraction of Inspired Oxygen 08/28/23 04:00 08/28/23 04:00 08/28/23 05:29 Temperature Pulse Rate 93 96 86 Respiratory Rate 34 H Blood Pressure Pulse Oximetry 91 Oxygen Delivery BiPAP Fraction of Inspired Oxygen 08/28/23 07:07 08/28/23 07:07 08/28/23 07:07 Temper
[2023-08-29] VITALS (20 sets, daily range): BP systolic 89–96; BP diastolic 37–43; PULSE 78–89; RESP 30–43; TEMP 36.1–36.4; O2SAT 86–100
[2023-08-29] MEDS: IPRATROPIUM 0.5 MG/ALBUTEROL SULFATE 2.5 MG AMPUL.NEB 3 ML INHALATION ×3 (01:39→13:19)
[2023-08-29] MEDS: AZITHROMYCIN 500 MG/NS 250 ML 500 MG/250 ML BAG 250 MG IVPB (05:17)
[2023-08-29] MEDS: methylPREDNISolone SOD SUCC 40 MG VIAL IV PUSH (08:53)
[2023-08-29] MEDS: PANTOPRAZOLE SODIUM IV 40 MG VIAL IV PUSH (08:53)
[2023-08-29] MEDS: MICAFUNGIN SODIUM 100 MG in SODIUM CHLORIDE 0.9% IV 100 ML IVPB (08:53)
[2023-08-29] MEDS: CEFEPIME 1 GM/NS 50 ML 1 GM/50 ML BAG IVPB (08:54)
--- NOTE | 2023-08-29 09:54 | PM.PNCARD ---
Progress Note: A&P Assessment and Plan (1) Elevated troponin: Code(s): R79.89 - Other specified abnormal findings of blood chemistry Status: Acute Assessment and Plan: Patient has elevated troponins that are concerning for ACS.? His clinical syndrome of acute shortness of breath may be his anginal equivalent.? He had been having some exertional chest pain as of late also.? CT does not show any pulmonary embolism.?2D echocardiogram Doppler with preserved LVEF, no significant valvular disease. Patient is a DNR but was willing to hold his DNR status for cardiac workup if need be. Patient was agreeable to cardiac catheterization. He was tentatively scheduled for cardiac cath 08/27, however, not appropriate at this time given worsening respiratory status with increased respiratory rate on BIPAP, Hgb dropping to the 7s. 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 Will also need to ensure his Hgb levels remain stable prior to cath. Heparin drip had to be discontinued due to his significant anemia. In the meantime, continue ASA, statin. (2) Acute hypoxic respiratory failure: Code(s): J96.01 - Acute respiratory failure with hypoxia Status: Acute Assessment and Plan: Echocardiogram showed preserved LVEF 60-65%, grade 2 diastolic dysfunction, dilated left atrium, no significant valvular disease. CXR still with diffuse airspace consolidation. Correlate for advanced pulmonary edema versus diffuse pneumonia. We were diuresing him with IV Lasix with net negative 1,361cc this admission, however, his renal function worsened and he became hypotensive, therefore, Lasix placed on hold. Being empirically treated for PNA, including PJP, however, not improving. (3) Elevated serum creatinine: Code(s): R79.89 - Other specified abnormal findings of blood chemistry Status: Acute Assessment and Plan: SCr worsening. Hold Lasix. Follow renal function closely (4) Hyperlipidemia: Code(s): E78.5 - Hyperlipidemia, unspecified Status: Acute Assessment and Plan: Continue statin (5) Essential hypertension: Code(s): I10 - Essential (primary) hypertension Status: Acute Assessment and Plan: Hypotensive currently. Hold off on Lasix. (6) 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ieved remission Status: Acute Assessment and Plan: Follows with Oncology at [facility]. Oncology here consulted as well. Plan Prognosis is poor. Subjective Date/time seen: 08/29/23 09:54 Interval history: Reason for visit: NSTEMI HPI: Patient is a 78-year-old male who has a history of leukemia, history of COVID, hypertension, hyperlipidemia who presented to the hospital with acute onset of shortness of breath.? Patient has been intermittently short of breath for the past week or so.? He received antibiotic which seemed to help initially but last night he became acutely short of breath.? CT scan was performed showing diffuse lung disease consider edema but no pulmonary embolism.? Troponins are elevated and rising.? Cardiology consultation was therefore initiated.? Upon further questioning, he admits to some anterior chest pain intermittently for the past couple of weeks.? It was exertional and improved with rest.? He denies any syncope, presyncope, paroxysmal nocturnal dyspnea or orthopnea or edema. Date of service 08/26: Patient's respiratory status is worsening. Now requiring continuous BIPAP otherwise he has significant desaturations. Saw by Dr. Alejandro this morning - ordered for repeat COVID, RSV, Influenza testing, being empirically treated for PJP. In addition, Hgb has decreased to 7.8 this morning. Patient denies any active chest pain this morning. Date of service 08/27: Patient continues to deteriorate. Date of service 08/28: Remains on BIPAP, however, with increased r
[2023-08-29 10:25] LABS: Hematocrit 25.3 % (42.0-52.0); Hemoglobin 7.8 g/dL (14.0-18.0); Immature Platelet Fraction Pct 22.6 % (0.9-11.2); Mean Corpuscular HGB Conc 30.8 g/dl (32-36); Mean Corpuscular Hemoglobin 30.6 pg (26-34); Mean Corpuscular Volume 99.2 fl (80-100); Mean Platelet Volume 13.8 fl (7.4-10.4); Platelet Count Result 237 k/mm3 (150-375); Red Blood Count 2.55 M/mm3 (4.6-6.20); Red Cell Distribution Width 24.8 % (11.5-14.5); White Blood Count 31.7 K/mm3 (4.5-10.0)
[2023-08-29 10:54] LABS: Alanine Aminotransferase 24 U/L (6-50); Albumin Level 3.5 g/dL (3.5-5.1); Alkaline Phosphatase 170 U/L (38-126); Anion Gap 15 mmol/L (8-16); Aspartate Amino Transferase 40 U/L (17-59); Band Neutrophils Percent 16 % (0-6); Bilirubin,Total 1.3 mg/dL (0.2-1.3); Blood Urea Nitrogen 98 mg/dL (9-20); Calcium 7.7 mg/dL (8.4-10.2); Carbon Dioxide 17 mmol/L (22-30); Chloride 106 mmol/L (98-107); Estimated CRCL calculation 15 ml/min; Estimated Glomerular Filt Rate 16; Glucose 132 mg/dL (65-110); Lymphocytes Absolute Manual 1.26 K/mm3 (1.1-4.5); Metamyelocytes Percent 1 %; Monocytes Absolute Manual 2.21 K/mm3 (0.1-0.90); Monocytes Percent Manual 7 % (3-9); Myelocytes Percent 4 %; Neutrophils Absolute Manual 26.62 K/mm3 (1.3-6.7); Neutrophils Percent Manual 68 % (46-73); Nucleated Red Blood Cells 3 %; Platelet Estimate Adequate (Adequate); Potassium 4.6 mmol/L (3.4-5.0); Sodium 138 mmol/L (137-145); Total Cells Counted 100
[2023-08-29 10:55] LABS: Acanthocytes 1+ (NORMAL); Anisocytosis 1+ (NORMAL); Hypochromasia 1+ (NORMAL); Ovalocytes 1+ (NORMAL); Schistocytes Rare (NORMAL)
[2023-08-29 11:01] LABS: Vancomycin Trough 16.2 ug/mL (10.0-20.0)
[2023-08-29 13:45] LABS: Mycoplasma IgM Antibody Titer 34 U/mL (<770)
--- NOTE | 2023-08-29 15:15 | PC.NURSE ---
This RN, conservation educator, Care Coordination, and MD to bedside with pt's daughter, Madeline, and Skye PRESTON, to discuss pt's prognosis. Final decision made by POPola and pt's daughter to make pt comfort measures. MD will place orders for comfort measure and RN will proceed once family is ready.
--- NOTE | 2023-08-29 15:45 | PM.IMPN ---
Progress Note: A&P Assessment and Plan (1) Pneumonia: Code(s): J18.9 - Pneumonia, unspecified organism Status: Acute Assessment and Plan: Broad-spectrum IV antibiotic including antifungal follow-up culture results discussed with pulmonology associated with acute hypoxemic respiratory failure Follow sputum culture blood culture reviewed CT scan of the chest Pulmonary was consulted (2) Acute hypoxic respiratory failure: Code(s): J96.01 - Acute respiratory failure with hypoxia Status: Acute Assessment and Plan: Probably multifactorial related to pulmonary edema and pneumonia Continue IV antibiotic nebulizer treatment IV diuretics cardiology following Patient currently on BiPAP pulmonology was consulted 08/28/23: Awaiting daughter and BiPAP may be discontinued (3) Hyperlipidemia: Code(s): E78.5 - Hyperlipidemia, unspecified Status: Acute Assessment and Plan: Resume home medication (4) 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 Patient has worsening anemia if continued to worsen Heme-Onc recommendation appreciated (5) Essential hypertension: Code(s): I10 - Essential (primary) hypertension Status: Acute Assessment and Plan: Hold amlodipine to allow diuresis (6) Pulmonary edema: Code(s): J81.1 - Chronic pulmonary edema Status: Acute Assessment and Plan: Probable acute and of chronic diastolic CHF exacerbation repeat echo follow serial troponin cardiology was consulted continue gentle diuresis (7) Elevated serum creatinine: Code(s): R79.89 - Other specified abnormal findings of blood chemistry Status: Acute Assessment and Plan: Monitor closely patient has IV contrast benefit outweighed the risk patient has pulmonary edema gentle diuresis as also patient is on BiPAP (8) Elevated troponin: Code(s): R79.89 - Other specified abnormal findings of blood chemistry Status: Acute Assessment and Plan: Elevated troponin probably related to demand ischemia follow serial troponin repeat ECG continue tele monitor patient denies any active chest pain Cardiology was consulted Plan Prognosis poor to guarded 08/28/23: Awaiting daughter who is inbound from [place] of state. 08/29/23: 08/29/23: Met with daughter and POA; Met and discussed with POA and daughter; the latter is waiting for family members to say their farewells before pursuing comfort care measures.s Time Spent With Patient Time with patient: 25 - 35 minutes Subjective Date/time seen: 08/29/23 15:45 Interval history: Reason for visit: NSTEMI; Hypoxic respiratory failure HPI: Patient is a 78-year-old male who has a history of leukemia, history of COVID, hypertension, hyperlipidemia who presented to the hospital with acute onset of shortness of breath.? Patient has been intermittently short of breath for the past week or so.? He received antibiotic which seemed to help initially but last night he became acutely short of breath.? CT scan was performed showing diffuse lung disease consider edema but no pulmonary embolism.? Troponins are elevated and rising.? Cardiology consultation was therefore initiated.? Upon further questioning, he admits to some anterior chest pain intermittently for the past couple of weeks.? It was exertional and improved with rest.? He denies any syncope, presyncope, paroxysmal nocturnal dyspnea or orthopnea or edema. Patient was found to have pulmonary edema and pneumonia elevated troponin cardiology was consulted patient also has acute hypoxemic respiratory failure required BiPAP Heme-Onc was consulted as patient has myelofibrosis with worsening anemia patient condition continued to worsen today
[2023-08-29] MEDS: MORPHINE SULFATE INJ (*CRX) 10 MG/ML AMP 5 MG IV PUSH (18:24)
[2023-08-29] MEDS: LORazepam INJ (*CRX) 2 MG/ML VIAL IV PUSH (18:24)
[2023-08-30 04:53] LABS: Pneumococcal Antigen Urine Not Detected (Not Detected)
[2023-08-30 13:21] LABS: Methylmalonic Acid 275 nmol/L (87-318)
--- NOTE | 2023-08-30 17:55 | PM.DDS ---
Discharge Summary Date and Time Date of : 08/29/23 Time of : 18:42 Provider Pronounced By: jules tobias rn and mireya chappell rn Probable Cause of Probable Cause of : Pneumonia Summary Hospital Course: Reason for visit: NSTEMI; Hypoxic respiratory failure HPI: Patient is a 78-year-old male who has a history of leukemia, history of COVID, hypertension, hyperlipidemia who presented to the hospital with acute onset of shortness of breath.? Patient has been intermittently short of breath for the past week or so.? He received antibiotic which seemed to help initially but last night he became acutely short of breath.? CT scan was performed showing diffuse lung disease consider edema but no pulmonary embolism.? Troponins are elevated and rising.? Cardiology consultation was therefore initiated.? Upon further questioning, he admits to some anterior chest pain intermittently for the past couple of weeks.? It was exertional and improved with rest.? He denies any syncope, presyncope, paroxysmal nocturnal dyspnea or orthopnea or edema. 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 08/28/23: Expecting daughter who is coming from [place] 08/29/23: 08/29/23: Met with daughter and POA; Met and discussed with POA and daughter; the latter is waiting for family members to say their farewells before pursuing comfort care measures. Time of : 18: 42 on 08/29/23 Additional Data Confirmation of as documented by pronouncing clinician: Pupillary Reflex, Palpable Pulses, Response to Stimuli, Heart Tones and Breath Sounds Name of Provider Notified: dr. griffin Time Provider Notified: 18:45 Provider Requests Autopsy: No Family Requests Autopsy: No Technical Account Executive Notified: Yes Date [facility] Notified of : 08/29/23 Time [facility] Notified of : 18:50
[2023-08-30 21:22] LABS: Mitochondrial (M2) Ab (IgG) <=20.0 U (<=20.0)
[2023-08-31 05:35] LABS: Legionella pneumophila Ag Ur Not Detected (Not Detected)
[2023-09-02 12:58] LABS: Soluble Transferrin Receptor 0.57 mg/L (0.76-1.76)
[2023-09-03 10:43] LABS: Ceruloplasmin 34 mg/dL (18-36)
== END 2023-08-29 18:42 | disposition expired | DRG 193 ==
LOC: ANHED 05:51 → ANHIMU 07:02
PROVIDERS: Internal Medicine; Internal Medicine Cardiovascular Disease; Internal Medicine Gastroenterology; Internal Medicine Pulmonary Disease; Nurse Practitioner Family; Admitting Provider General Practice; Emergency Provider Emergency Medicine; PCP Nurse Practitioner Family; Visit Provider Internal Medicine
DX: J18.9 Pneumonia, unspecified organism (principal); I50.33 Acute on chronic diastolic (congestive) heart failure; J96.01 Acute respiratory failure with hypoxia; D47.1 Chronic myeloproliferative disease; I24.89 Other forms of acute ischemic heart disease; E87.20 Acidosis, unspecified; N17.9 Acute kidney failure, unspecified; I11.0 Hypertensive heart disease with heart failure; B59 Pneumocystosis; E78.5 Hyperlipidemia, unspecified; E03.9 Hypothyroidism, unspecified; M19.90 Unspecified osteoarthritis, unspecified site; Z20.822 Contact with and (suspected) exposure to COVID-19; Z86.16 Personal history of COVID-19; K74.60 Unspecified cirrhosis of liver; D63.8 Anemia in other chronic diseases classified elsewhere
CPT/HCPCS: 36415; 36600; 71045; 71275; 80053; 80074; 80202; 81001; 82104; 82140; 82390; 82565; 82607; 82728; 82746; 82805; 83520; 83540; 83550; 83605; 83615; 83735; 83880; 83921; 84145; 84238; 84484; 85014; 85018; 85025; 85055; 85610; 85730; 86038; 86738; 86850; 86900; 86901; 86923; 87040; 87070; 87205; 87449; 87633; 87637; 87641; 87899; 93005; 94002; 94003; 94640; 96365; 96367; 99291; A9270; C8929; C9113; G0378; J0456; J0692; J0696; J1644; J1940; J2060; J2248; J2270; J2920; J3370; J7060; Q9957; Q9967